=== PATIENT | male | born 1990 | race Caucasian/White ===

== ENCOUNTER 2019-12-12 16:53 | Inpatient (IN) | payer BC, OTHER ==
[2019-12-12] MEDS ORDERED: SODIUM CHLORIDE 0.9% 1,000 ML IV STA (17:20)
[2019-12-12] MEDS ORDERED: ONDANSETRON 4 MG/2 ML VIAL IVP STA (17:20)
[2019-12-12] MEDS ORDERED: MORPHINE SULFATE 4 MG/ML SYRINGE IV STA (17:20)
[2019-12-12 17:43] LABS: Basophils # (A) 0.1 k/uL (0-0.2); Basophils % (A) 1 %; Eosinophils # (A) 0.2 k/uL (0-0.7); Eosinophils % (A) 2 %; HCT 47.9 % (39.0-53.0); HGB 16.2 gm/dL (13.0-17.5); Lymphocytes # (A) 1.7 k/uL (1.0-4.8); Lymphocytes % (A) 19 %; MCH 34.3 pg (25.0-35.0); MCHC 33.8 g/dL (31.0-37.0); MCV 101.5 fL (80.0-100.0); Monocytes # (A) 0.7 k/uL (0-1.0); Monocytes % (A) 7 %; Neutrophils # (A) 6.4 k/uL (1.3-7.7); Neutrophils % (A) 69 %; Platelet Count 269 k/uL (150-450); RBC 4.72 m/uL (4.30-5.90); RDW 12.8 % (11.5-15.5); WBC 9.3 k/uL (3.8-10.6)
[2019-12-12 17:52] LABS: ALT 82 U/L (4-49); AST 138 U/L (17-59); African American GFR (CKD) >90 (>60 ml/min/1.73 sqM); Albumin 4.7 g/dL (3.5-5.0); Alcohol 39 mg/dL; Alkaline Phosphatase 102 U/L (38-126); Amylase 116 U/L (30-110); Anion Gap 13 mmol/L; Blood Urea Nitrogen 11 mg/dL (9-20); Calcium 9.5 mg/dL (8.4-10.2); Carbon Dioxide 24 mmol/L (22-30); Chloride 98 mmol/L (98-107); Glucose 107 mg/dL (74-99); Non-African American GFR(CKD) >90 (>60 ml/min/1.73 sqM); Potassium 4.2 mmol/L (3.5-5.1); Sodium 135 mmol/L (137-145); Total Bilirubin 0.8 mg/dL (0.2-1.3); Total Protein 7.7 g/dL (6.3-8.2)
[2019-12-12 17:57] LABS: Partial Thromboplastin Time 23.8 sec (22.0-30.0); Prothrombin Time 10.2 sec (9.0-12.0)
--- NOTE | 2019-12-12 18:07 | CT ---
EXAMINATION TYPE: CT abdomen pelvis w con DATE OF EXAM: 12/12/2019 COMPARISON: None. HISTORY: Epigastric pain x1 week, nausea and constipation. CT DLP: 652.4 mGycm, Automated Exposure Control for Dose Reduction was Utilized. CONTRAST: CT scan of the abdomen and pelvis is performed without oral but with IV Contrast, patient injected wi th 100ml mL of Isovue 300. FINDINGS: LUNG BASES: No significant abnormality is appreciated. LIVER/GB: Mild Hepatomegaly with marked fatty infiltration of liver. PANCREAS: Heterogeneous enlargement with mild/moderate ill-defined fluid and fat stranding in the henderson creatic head and uncinate process seen best near axial image 35. No well-formed fluid collection. No areas of nonenhancement noted. SPLEEN: No significant abnormality is seen. ADRENALS: No significant abnormality is seen. KIDNEYS: Symmetric cortical medullary uptake and excretion without hydronephrosis seen bilaterally. BOWEL: Suboptimal evaluation without enteric contrast. No suspicious small or large bowel dilatation is seen. PROSTATE/SEMINAL VESICLES: No gross abnormality seen. LYMPH NODES: No greater than 1cm abdominal or pelvic lymph nodes are appreciated. OSSEOUS STRUCTURES: Spine is straightened on sagittal images. OTHER: No significant additional abnormality is seen. IMPRESSION: CT findings consistent with a mild to moderate acute pancreatitis centered in the pancrea tic head. No areas of necrosis or well-formed fluid collection noted. Correlate clinically.
[2019-12-12 18:22] LABS: Appearance,Urine Clear (Clear); Bilirubin,Urine Negative (Negative); Blood,Urine Negative (Negative); Color,Urine Yellow; Glucose,Urine (UA) Negative (Negative); Ketones,Urine Negative (Negative); Leukocyte Esterase,Urine Negative (Negative); Nitrite,Urine Negative (Negative); PH, Urine 7.5 (5.0-8.0); Protein,Urine Negative (Negative); Specific Gravity,Urine 1.029 (1.001-1.035); Urobilinogen,Urine <2.0 mg/dL (<2.0)
--- NOTE | 2019-12-12 18:50 | ED ---
Abdominal Pain HPI <Blaine Youssef - Last Filed: 12/12/19 18:52> - General Source: patient, family Mode of arrival: ambulatory Limitations: no limitations <Dawn Milton - Last Filed: 12/12/19 20:05> - General Chief Complaint: Abdominal Pain Stated Complaint: abd pain - History of Present Illness Initial Comments: Patient is a 28-year-old male presenting to the emergency Department with complaints of increasing abdominal pain over the past week. Patient states the pain started out minimal but each day is getting worse and worse. He's also been having nausea and vomiting. He does admit to being a daily alcoholic, d rinking a pint of liquor daily. He states he did have a little bit today secondary to fear of withdrawal. He denies any abdominal surgeries. He denies any fever, chills, diarrhea. He also states he has not had a bowel movement in 3 days. He denies any urinary complaints such as dysuria or frequency. He states he takes an oiih-iwv-umffsxu supplement called kratom. He denies taking any other medications. He has no further complaints at this time. Upon arrival to the ER, patient is slightly hypertensive, rest of vitals are normal. Of note, patient states he does not want any narcotics. (Dawn Milton) - Related Data Home Medications Medication Instructions Recorded Confirmed No Known Home Medications 12/12/19 12/12/19 Allergies Allergy/AdvReac Type Severity Reaction Status Date / Time No Known Allergies Allergy Verified 12/12/19 19:05 Review of Systems ROS Other: All systems not noted in ROS Statement are negative. <Blaine Youssef - Last Filed: 12/12/19 18:52> ROS Other: All systems not noted in ROS Statement are negative. <Dawn Milton - Last Filed: 12/12/19 20:05> ROS Statement: Those systems with pertinent positive or pertinent negative responses have been documented in the HPI. Past Medical History Additional Past Medical History / Comment(s): drug abuse History of Any Multi-Drug Resistant Organisms: None Reported Past Surgical History: No Surgical Hx Reported Past Psychological History: No Psychological Hx Reported Smoking Status: Current every day smoker Past Alcohol Use History: Daily, Heavy Past Drug Use History: None Reported, Heroin <Dawn Milton - Last Filed: 12/12/19 20:05> General Exam Limitations: no limitations <Dawn Milton - Last Filed: 12/12/19 20:05> - General Exam Comments Initial Comments: GENERAL: Patient is nontoxic, diaphoretic, in mild distress. HEAD: Atraumatic, normocephalic. EYES: Pupils equal round and reactive to light, extraocular movements intact, sclera anicteric, conjunctiva are normal. Eyelids were unremarkable. ENT: TMs normal, nares patent, oropharynx clear without exudates. Moist mucous membranes. NECK: Normal range of motion, supple without lymphadenopathy or JVD. LUNGS: Unlabored respirations. Breath sounds clear to auscultation bilaterally and equal. No wheezes rales or rhonchi. HEART: Regular rate and rhythm without murmurs, rubs or gallops. ABDOMEN: Tender to palpation in the epigastric, right and left upper quadrant as well as some mid abdominal tenderness. Positive guarding. Soft, normoactive bowel sounds. No masses appreciated. : Deferred MUSCULOSKELETAL: Normal extremities with adequate strength and normal range of motion, no pitting or edema. No clubbing or cyanosis. NEUROLOGICAL: Patient is alert and oriented x 3. Motor and sensory are also intact. Cranial nerves II through XII grossly intact. Symmetrical smile. Normal speech, normal gait. PSYCH: Normal mood, normal affect. SKIN: Warm, Dry, normal turgor, no rashes or lesions noted. (Dawn Milton) Course <Blaine Youssef - Last Filed: 12/12/19 18:52> Vital Signs 12/12/19 12/12/19 12/12/19 16:55 17:33 18:12 Temperature 98 F Pulse Rate 98 88 88 Respiratory 18 18 18 Rate Blood Pressure 140/105 132/102 141/99 O2 Sat by Pulse 99 98 98 Oximetry 12/12/19 19:15 Temperature Pulse Rate 91 Respiratory 18 Rate Blood Pressure 131/98 O2 Sat by Pulse 97 Oximetry - Reevaluation(s) Reevaluation #1: 12/12/19 18:52 PA supervision: I proceeded [id number] evaluation patient patient did present with classic abdominal pain he was found have elevation of his pancreatic enzymes. Patient will be admitted for inpatient treatment of acute pancreatitis. I do agree with the assessment and plan. [facility]. (Blaine Youssef) Medical Decision Making - Lab Data Result diagrams: 12/12/19 17:31 12/12/19 17:31 <Blaine Youssef - Last Filed: 12/12/19 18:52> - Lab Data Result diagrams: 12/12/19 17:31 12/12/19 17:31 <Dawn Milton - Last Filed: 12/12/19 20:05> - Medical Decision Making Patient is a 28-year-old male, history of alcohol abuse, presenting with epigastric pain, nausea and vomiting for one week. Patient arrived in mild distress, slightly diaphoretic. Patient is simply tender on exam, mild distention. There is a normal white count at 9.3, lipase is elevated at 1164, liver enzymes are also slightly elevated, lactic acid is 1.9. Urine is unremarkable, serum alcohol is 39. Patient was given fluids, Zofran. I did order some morphine however patient is declining all narcotics. I will give patient Toradol patient will be admitted for acute pancreatitis. He is agreement with this plan of care. Patient was thought to be admitted under [facility], however Dr. Sierra stated they are covering for Dr. Callaway and will accept the patient. She'll be continued on fluids, pain control. Again, he is declining all narcotics. CIWA protocol is ordered and patient is okay with ativan if needed. Case discussed with Dr. Youssef. (Dawn Milton) - Lab Data Lab Results 12/12/19 12/12/19 12/12/19 Range/Units 17:31 17:31 17:31 WBC 9.3 (3.8-10.6) k/uL RBC 4.72 (4.30-5.90) m/uL Hgb 16.2 (13.0-17.5) gm/dL Hct 47.9 (39.0-53.0) % MCV 101.5 H (80.0-100.0) fL MCH 34.3 (25.0-35.0) pg MCHC 33.8 (31.0-37.0) g/dL RDW 12.8 (11.5-15.5) % Plt Count 269 (150-450) k/uL Neutrophils % 69 % Lymphocytes % 19 % Monocytes % 7 % Eosinophils % 2 % Basophils % 1 % Neutrophils # 6.4 (1.3-7.7) k/uL Lymphocytes # 1.7 (1.0-4.8) k/uL Monocytes # 0.7 (0-1.0) k/uL Eosinophils # 0.2 (0-0.7) k/uL Basophils # 0.1 (0-0.2) k/uL PT 10.2 (9.0-12.0) sec INR 1.0 (<1.2) APTT 23.8 (22.0-30.0) sec Sodium 135 L (137-145) mmol/L Potassium 4.2 (3.5-5.1) mmol/L Chloride 98 (98-107) mmol/L Carbon Dioxide 24 (22-30) mmol/L Anion Gap 13 mmol/L BUN 11 (9-20) mg/dL Creatinine 0.80 (0.66-1.25) mg/dL Est GFR (CKD-EPI)AfAm >90 (>60 ml/min/1.73 sqM) Est GFR (CKD-EPI)NonAf >90 (>60 ml/min/1.73 sqM) Glucose 107 H (74-99) mg/dL Plasma Lactic Acid Heron (0.7-2.0) mmol/L Calcium 9.5 (8.4-10.2) mg/dL Total Bilirubin 0.8 (0.2-1.3) mg/dL AST 138 H (17-59) U/L ALT 82 H (4-49) U/L Alkaline Phosphatase 102 (38-126) U/L Total Protein 7.7 (6.3-8.2) g/dL Albumin 4.7 (3.5-5.0) g/dL Amylase 116 H (30-110) U/L Lipase 1164 H (23-300) U/L Urine Color Urine Appearance (Clear) Urine pH (5.0-8.0) Ur Specific [place] (1.001-1.035) Urine Protein (Negative) Urine Glucose (UA) (Negative) Urine Ketones (Negative) Urine Blood (Negative) Urine Nitrite (Negative) Urine Bilirubin (Negative) Urine Urobilinogen (<2.0) mg/dL Ur Leukocyte Esterase (Negative) Serum Alcohol 39 mg/dL 12/12/19 12/12/19 Range/Units 17:31 18:08 WBC (3.8-10.6) k/uL RBC (4.30-5.90) m/uL Hgb (13.0-17.5) gm/dL Hct (39.0-53.0) % MCV (80.0-100.0) fL MCH (25.0-35.0) pg MCHC (31.0-37.0) g/dL RDW (11.5-15.5) % Plt Count (150-450) k/uL Neutrophils % % Lymphocytes % % Monocytes % % Eosinophils % % Basophils % % Neutrophils # (1.3-7.7) k/uL Lymphocytes # (1.0-4.8) k/uL Monocytes # (0-1.0) k/uL Eosinophils # (0-0.7) k/uL Basophils # (0-0.2) k/uL PT (9.0-12.0) sec INR (<1.2) APTT (22.0-30.0) sec Sodium (137-145) mmol/L Potassium (3.5-5.1) mmol/L Chloride (98-107) mmol/L Carbon Dioxide (22-30) mmol/L Anion Gap mmol/L BUN (9-20) mg/dL Creatinine (0.66-1.25) mg/dL Est GFR (CKD-EPI)AfAm (>60 ml/min/1.73 sqM) Est GFR (CKD-EPI)NonAf (>60 ml/min/1.73 sqM) Glucose (74-99) mg/dL Plasma Lactic Acid Heron 1.9 (0.7-2.0) mmol/L Calcium (8.4-10.2) mg/dL Total Bilirubin (0.2-1.3) mg/dL AST (17-59) U/L ALT (4-49) U/L Alkaline Phosphatase (38-126) U/L Total Protein (6.3-8.2) g/dL Albumin (3.5-5.0) g/dL Amylase (30-110) U/L Lipase (23-300) U/L Urine Color Yellow Urine Appearance Clear (Clear) Urine pH 7.5 (5.0-8.0) Ur Specific [place] 1.029 (1.001-1.035) Urine Protein Negative (Negative) Urine Glucose (UA) Negative (Negative) Urine Ketones Negative (Negative) Urine Blood Negative (Negative) Urine Nitrite Negative (Negative) Urine Bilirubin Negative (Negative) Urine Urobilinogen <2.0 (<2.0) mg/dL Ur Leukocyte Esterase Negative (Negative) Serum Alcohol mg/dL Disposition <Blaine Youssef - Last Filed: 12/12/19 18:52> Decision Date: 12/12/19 Decision Time: 19:28 <Dawn Milton - Last Filed: 12/12/19 20:05> Clinical Impression: Pancreatitis, Alcohol abuse, Nausea & vomiting Disposition: ADMITTED IP TO THIS HOSP Condition: Stable
[2019-12-12] MEDS ORDERED: KETOROLAC 15 MG/ML 1 ML VIAL IVP STA (19:04)
[2019-12-12] MEDS ORDERED: NALOXONE 0.4 MG/ML 1 ML VIAL IV PRN (19:25)
[2019-12-12] MEDS ORDERED: Acetaminophen-Codeine 300-30mg TAB PO PRN (19:25)
[2019-12-12] MEDS ORDERED: ACETAMINOPHEN TAB 325 MG TAB PO PRN (19:25)
[2019-12-12] MEDS ORDERED: KETOROLAC 15 MG/ML 1 ML VIAL IVP PRN (19:25)
[2019-12-12] MEDS ORDERED: THIAMINE 100 MG/ML 2 ML VIAL IM STA (19:27)
[2019-12-12] MEDS ORDERED: LORazepam 2 MG/ML INJ IV PRN ×2 (19:27)
[2019-12-12] MEDS: SODIUM CHLORIDE 0.9% 1,000 ML IV SCH (21:53)
[2019-12-13] MEDS: LORazepam 2 MG/ML INJ IV PRN ×3 (05:53→15:55)
[2019-12-13] MEDS: THIAMINE 100 MG TAB PO SCH ×2 (07:12→16:54)
[2019-12-13] MEDS: SODIUM CHLORIDE 0.9% 1,000 ML IV SCH ×2 (07:12→19:10)
[2019-12-13 08:02] LABS: Basophils % (A) 1 %; Eosinophils # (A) 0.2 k/uL (0-0.7); Eosinophils % (A) 3 %; HCT 40.6 % (39.0-53.0); HGB 13.5 gm/dL (13.0-17.5); Lymphocytes # (A) 1.2 k/uL (1.0-4.8); Lymphocytes % (A) 23 %; MCH 34.8 pg (25.0-35.0); MCHC 33.2 g/dL (31.0-37.0); MCV 104.9 fL (80.0-100.0); Macrocytosis Slight; Mean Platelet Volume 7.2; Monocytes # (A) 0.5 k/uL (0-1.0); Monocytes % (A) 9 %; Neutrophils # (A) 3.3 k/uL (1.3-7.7); Neutrophils % (A) 62 %; Platelet Count 195 k/uL (150-450); RBC 3.87 m/uL (4.30-5.90); RDW 12.9 % (11.5-15.5); WBC 5.3 k/uL (3.8-10.6)
[2019-12-13 08:18] LABS: African American GFR (CKD) >90 (>60 ml/min/1.73 sqM); Anion Gap 6 mmol/L; Blood Urea Nitrogen 9 mg/dL (9-20); Calcium 8.5 mg/dL (8.4-10.2); Carbon Dioxide 28 mmol/L (22-30); Chloride 106 mmol/L (98-107); Glucose 89 mg/dL (74-99); Non-African American GFR(CKD) >90 (>60 ml/min/1.73 sqM); Potassium 4.4 mmol/L (3.5-5.1); Sodium 140 mmol/L (137-145)
[2019-12-13 11:16] LABS: Amylase 74 U/L (30-110)
--- NOTE | 2019-12-13 11:40 | P.HPIM ---
History of Present Illness 28-year-old male presenting to the emergency Department with complaints of increasing abdominal pain over the past week. Patient states the pain started out minimal but each day is getting worse and worse. He's also been having na usea and vomiting. He does admit to being a daily alcoholic, drinking a pint of liquor daily. He states he did have a little bit today secondary to fear of withdrawal. He denies any abdominal surgeries. He denies any fever, chills, diarrhea. He also states he has not had a bowel movement in 3 days. He denies any urinary complaints such as dysuria or frequency. He states he takes an goaw-lbs-hbzeurx supplement called kratom. He denies taking any other medications. Patient pain is prominently in the right upper quadrant and sharp in nature 8/10 in severity yesterday and now around 3/10 in severity. Patient is hungry and wanted to eat patient is presently on clear liquid diet will adv ance to full liquid by and of the day patient is found to have elevated left days of febrile thousand and CT of the abdomen did show edematous pancreatitis. Review of Systems REVIEW OF SYSTEMS: CONSTITUTIONAL: No fever, no malaise, no fatigue. HEENT: No recent visual problems or hearing problems. Denied any sore throat. CARDIOVASCULAR: No chest pain, orthopnea, PND, no palpitations, no syncope. PULMONARY: No shortness of breath, no cough, no hemoptysis. GASTROINTESTINAL: As mentioned in HPI NEUROLOGICAL: No headaches, no weakness, no numbness. HEMATOLOGICAL: Denies any bleeding or petechiae. GENITOURINARY: Denies any burning micturition, frequency, or urgency. MUSCULOSKELETAL/RHEUMATOLOGICAL: Denies any joint pain, swelling, or any muscle pain. ENDOCRINE: Denies any polyuria or polydipsia. The rest of the 14-point review of systems is negative. Past Medical History Past Medical History: No Reported History Additional Past Medical History / Comment(s): drug abuse History of Any Multi-Drug Resistant Organisms: None Reported Past Surgical History: No Surgical Hx Reported Past Anesthesia/Blood Transfusion Reactions: No Reported Reaction Additional Past Anesthesia/Blood Transfusion Reaction / Comment(s): Patient has never received blood Past Psychological History: No Psychological Hx Reported Smoking Status: Current every day smoker Past Alcohol Use History: Daily, Heavy Additional Past Alcohol Use History / Comment(s): Patient states he drinks over a fifth of vodka. Past Drug Use History: None Reported, Heroin - Past Family History Father History Unknown: Yes Medications and Allergies Home Medications Medication Instructions Recorded Confirmed Type No Known Home Medications 12/12/19 12/12/19 History Allergies Allergy/AdvReac Type Severity Reaction Status Date / Time No Known Allergies Allergy Verified 12/12/19 19:05 Physical Exam Vitals: Vital Signs Temp Pulse Pulse Resp BP BP Pulse Ox 12/13/19 07:10 18 12/13/19 07:00 97.9 F 73 18 120/79 98 12/13/19 04:20 20 12/13/19 00:50 97 F L 87 20 146/82 97 12/13/19 00:20 91 18 12/12/19 20:45 98 F 91 18 139/91 97 12/12/19 20:19 98.0 F 94 18 138/97 97 12/12/19 19:15 91 18 131/98 97 12/12/19 18:12 88 18 141/99 98 12/12/19 17:33 88 18 132/102 98 12/12/19 16:55 98 F 98 18 140/105 99 Intake and Output 12/12/19 12/13/19 12/13/19 22:59 06:59 14:59 Other: Voiding Method Toilet Toilet # Voids 2 1 Weight 63.503 kg PHYSICAL EXAMINATION: GENERAL: The patient is alert and oriented x3, not in any acute distress. Well developed, well nourished. HEENT: Pupils are round and equally reacting to light. EOMI. No scleral icterus. No conjunctival pallor. Normocephalic, atraumatic. No pharyngeal erythema. No thyromegaly. CARDIOVASCULAR: S1 and S2 present. No murmurs, rubs, or gallops. PULMONARY: Chest is clear to auscultation, no wheezing or crackles. ABDOMEN: Soft, mild right right upper quadrant tenderness, nondistended, normoactive bowel sounds. No palpable organomegaly. MUSCULOSKELETAL: No joint swelling or deformity. EXTREMITIES: No cyanosis, clubbing, or pedal edema. NEUROLOGICAL: Gross neurological examination did not reveal any focal deficits. SKIN: No rashes. Results CBC & Chem 7: 12/13/19 07:22 12/13/19 07:22 Labs: Abnormal Lab Results - Last 24 Hours (Table) 12/12/19 12/12/19 12/13/19 Range/Units 17:31 17:31 07:22 RBC 3.87 L (4.30-5.90) m/uL MCV 101.5 H 104.9 H (80.0-100.0) fL Sodium 135 L (137-145) mmol/L Glucose 107 H (74-99) mg/dL AST 138 H (17-59) U/L ALT 82 H (4-49) U/L Amylase 116 H (30-110) U/L Lipase 1164 H (23-300) U/L 12/13/19 Range/Units 07:22 RBC (4.30-5.90) m/uL MCV (80.0-100.0) fL Sodium (137-145) mmol/L Glucose (74-99) mg/dL AST (17-59) U/L ALT (4-49) U/L Amylase (30-110) U/L Lipase 794 H (23-300) U/L Thrombosis Risk Factor Assmnt - Choose All That Apply Any of the Below Risk Factors Present?: No Other Risk Factors: No Other congenital or acquired thrombophilia - If yes, enter type in comment: No Thrombosis Risk Factor Assessment Level: Very Low Risk Assessment and Plan Plan: -Pancreatic that is most probably alcoholic, although cannot completely rule out gallstone pancreatic discussed changes location of pain ultrasound of the abdomen was be obtained and patient will be continued on clear liquid diet and advance as tolerated any with IV fluids -Alcohol abuse drinks about one fifth of liquor every day patient is having all call withdraws at this time continue with Ativan ROBYNND protocol -Acute alcoholic hepatitis -Dehydration and hypovolemic hyponatremia continue with IV fluids -DVT prophylaxis early ambulation, GI prophylaxis Protonix
--- NOTE | 2019-12-13 14:57 | US ---
EXAMINATION TYPE: US gallbladder DATE OF EXAM: 12/13/2019 COMPARISON: CT 12/12/2019 CLINICAL HISTORY: elevated liver enzymes. pancreatitis. difficult and limited exam due to overlying b owel gas EXAM MEASUREMENTS: Liver Length: 20.0 cm Gallbladder Wall: 0.1 cm CBD: 0.5 cm Right Kidney: 10.8 x 4.4 x 5.4 cm Pancreas: Obscured by bowel gas Liver: Attenuating, enlarged, heterogeneous Gallbladder: Slightly hydropic Evidence for sonographic Lind's sign: No CBD: wnl as visualized Right Kidney: No hydronephrosis or masses seen IMPRESSION: Hepatomegaly with underlying fatty hepatic infiltration.
[2019-12-13 21:15] VITALS: RESP 18
[2019-12-14] MEDS: LORazepam 2 MG/ML INJ IV PRN ×2 (02:23→06:58)
[2019-12-14] MEDS: THIAMINE 100 MG TAB PO SCH (06:55)
[2019-12-14 08:05] VITALS: BP 139/96; PULSE 74; TEMP 97.6
[2019-12-14 09:34] LABS: ALT 62 U/L (4-49); AST 113 U/L (17-59); African American GFR (CKD) >90 (>60 ml/min/1.73 sqM); Albumin 3.4 g/dL (3.5-5.0); Alkaline Phosphatase 90 U/L (38-126); Anion Gap 4 mmol/L; Blood Urea Nitrogen 4 mg/dL (9-20); Calcium 8.7 mg/dL (8.4-10.2); Carbon Dioxide 25 mmol/L (22-30); Chloride 109 mmol/L (98-107); Glucose 96 mg/dL (74-99); Non-African American GFR(CKD) >90 (>60 ml/min/1.73 sqM); Potassium 3.9 mmol/L (3.5-5.1); Sodium 138 mmol/L (137-145); Total Protein 5.9 g/dL (6.3-8.2)
--- NOTE | 2019-12-14 19:17 | P.DS ---
Providers Date of admission: 12/12/19 18:50 Expected date of discharge: 12/14/19 Attending physician: Sarath Sierra MD Primary care physician: Eduar Nolen Hospital Course: Final diagnosis -Pancreatitis that is most probably alcoholic, although cannot completely rule out gallstone pancreatitis -Alcohol abuse -Acute alcoholic hepatitis -Dehydration and hypovolemic hyponatremia, improved -DVT prophylaxis Discharge disposition Patient is being discharged in a stable condition with guarded prognosis to home. Patient will follow-up with Dr. Nolen upon discharge. Patient instructed to avoid alcohol intake. Patient was given a prescription for Librium taper and instructed not to drink while taking. Total time taken is 35 minutes. History of present illness This is a 28-year-old male who was recently admitted with abdominal pain along with nausea and vomiting and was being closely monitored. Patient was also found to have acute pancreatitis most likely related to alcohol. Patient was maintained on CIWA protocol and abdominal pain improved. Patient diet was advanced to full liquids and tolerated well. Patient instructed to continue with full liquids over the next few days and advance slowly as tolerated. Patient also provided a prescription for Librium taper of 25 mg TID for 3 days, then 25mg BID for 3 days, then 25mg daily for 3 days and instructed to avoid alcohol. Patient will need to follow up with primary care provider upon discharge. Patient states he drinks about a pint of liquor daily with no real intentions to quit at this time. Patient instructed to refrain from alcohol intake and e ncouraged rehab for alcohol. Currently no reports of chest pain, palpitations, or shortness. Patient is afebrile. No reports of nausea or vomiting and patient is tolerating diet. On exam vital signs are stable. Temp is 97.6F, pulse is 74, respirations are 18, blood pressure 85185/96, oxygen saturation is 979% on room air. Cardio S1, S2 are present. Respiratory shows clear to auscultation. Abdomen is soft and nontender. Nervous system shows no focal deficits. Please refer to medication reconciliation sheet for a list of medications. Patient Condition at Discharge: Stable Plan - Discharge Summary Discharge Rx Participant: No New Discharge Prescriptions: New chlordiazePOXIDE HCl [Librium] 25 mg PO TID 9 Days #18 capsule Thiamine [Vitamin B-1] 100 mg PO BID-W/MEALS 30 Days #60 tab Discharge Medication List Thiamine [Vitamin B-1] 100 mg PO BID-W/MEALS 30 Days #60 tab 12/14/19 [Rx] chlordiazePOXIDE HCl [Librium] 25 mg PO TID 9 Days #18 capsule 12/14/19 [Rx] Follow up Appointment(s)/Referral(s): Eduar Nolen MD [Primary Care Provider] - 1-2 days Patient Instructions/Handouts: Alcohol Withdrawal (DC) Activity/Diet/Wound Care/Special Instructions: *Please call [facility] at discharge if indigent funds are needed for new medications [id number] Activity Limited until follow-up Continue current diet Follow-up with primary care provider upon discharge Avoid all alcohol intake Continue with Librium and taper down and do not drink while taking* Discharge Disposition: HOME SELF-CARE
== END 2019-12-14 16:17 | disposition home or self-care (01) | DRG 439 ==
LOC: EC 16:53 → 4SSUR 18:50
PROVIDERS: ADMIT Internal Medicine; ATTEND Internal Medicine
DX: K85.20 Alcohol induced acute pancreatitis without necrosis or infection (principal); F10.230 Alcohol dependence with withdrawal, uncomplicated; E87.1 Hypo-osmolality and hyponatremia; K70.10 Alcoholic hepatitis without ascites; F17.200 Nicotine dependence, unspecified, uncomplicated; R03.0 Elevated blood-pressure reading, without diagnosis of hypertension; E86.1 Hypovolemia; E86.0 Dehydration; K85.10 Biliary acute pancreatitis without necrosis or infection; K80.20 Calculus of gallbladder without cholecystitis without obstruction; Y90.1 Blood alcohol level of 20-39 mg/100 ml
CPT/HCPCS: 36415; 74177; 76705; 80048; 80053; 80320; 81003; 82150; 83605; 83690; 85025; 85610; 85730; 96361; 96374; 96375; 99285

== ENCOUNTER 2020-06-29 05:23 | Inpatient (IN) | payer OTHER ==
[2020-06-29] MEDS ORDERED: SODIUM CHLORIDE 0.9% 1,000 ML IV ONE ×2 (06:03→07:35)
[2020-06-29] MEDS ORDERED: THIAMINE 100 MG/ML 2 ML VIAL IM STA (06:03)
[2020-06-29 06:07] LABS: Basophils % (A) 0 %; Eosinophils # (A) 0.1 k/uL (0-0.7); Eosinophils % (A) 1 %; HCT 45.5 % (39.0-53.0); HGB 16.7 gm/dL (13.0-17.5); Lymphocytes # (A) 1.5 k/uL (1.0-4.8); Lymphocytes % (A) 11 %; MCH 34.4 pg (25.0-35.0); MCHC 36.6 g/dL (31.0-37.0); MCV 93.8 fL (80.0-100.0); Mean Platelet Volume 7.2; Monocytes # (A) 0.9 k/uL (0-1.0); Monocytes % (A) 6 %; Neutrophils # (A) 11.6 k/uL (1.3-7.7); Neutrophils % (A) 82 %; Platelet Count 233 k/uL (150-450); RBC 4.85 m/uL (4.30-5.90); RDW 12.8 % (11.5-15.5); WBC 14.3 k/uL (3.8-10.6)
[2020-06-29] MEDS: LORazepam 2 MG/ML INJ IV PRN ×7 (06:10→20:50)
[2020-06-29 06:19] LABS: ALT 29 U/L (4-49); AST 80 U/L (17-59); African American GFR (CKD) >90 (>60 ml/min/1.73 sqM); Albumin 4.4 g/dL (3.5-5.0); Alcohol <10 mg/dL; Alkaline Phosphatase 76 U/L (38-126); Anion Gap 13 mmol/L; Blood Urea Nitrogen 11 mg/dL (9-20); Calcium 9.5 mg/dL (8.4-10.2); Carbon Dioxide 24 mmol/L (22-30); Chloride 98 mmol/L (98-107); Glucose 177 mg/dL (74-99); Non-African American GFR(CKD) >90 (>60 ml/min/1.73 sqM); Potassium 3.7 mmol/L (3.5-5.1); Sodium 135 mmol/L (137-145); Total Bilirubin 1.1 mg/dL (0.2-1.3); Total Protein 6.8 g/dL (6.3-8.2)
[2020-06-29 06:38] LABS: Amylase 407 U/L (30-110)
--- NOTE | 2020-06-29 06:38 | ED ---
Alcohol HPI - General Chief Complaint: Alcohol Stated Complaint: Alcohol Withdrawal Time Seen by Provider: 06/29/20 06:03 Source: patient, RN notes reviewed, old records reviewed Mode of arrival: ambulatory Limitations: no limitations - History of Present Illness Initial Comments: This Patient is a 29-year-old male who presents emergency Department today with complaints of alcohol withdrawal and abdominal pain. Patient believes that he suffering from acute exacerbation of pancreatitis. Patient reports that he drinks approximately 1/5 a day for the past year. He last drink yesterday around noon. Patient reports that he has never had seizures for withdrawal. He states that he has attempted to go to rehab and stop drinking in the past but is never had significant withdrawal symptoms such as this time today. Patient arrived to emergency department with tremors. He doesn't complain of episodes of vomiting. Denies hemoptysis. - Related Data Home Medications Medication Instructions Recorded Confirmed No Known Home Medications 06/29/20 06/29/20 Allergies Allergy/AdvReac Type Severity Reaction Status Date / Time No Known Allergies Allergy Verified 06/29/20 07:22 Review of Systems ROS Statement: Those systems with pertinent positive or pertinent negative responses have been documented in the HPI. ROS Other: All systems not noted in ROS Statement are negative. Past Medical History Past Medical History: No Reported History Additional Past Medical History / Comment(s): drug abuse History of Any Multi-Drug Resistant Organisms: None Reported Past Surgical History: No Surgical Hx Reported Past Anesthesia/Blood Transfusion Reactions: No Reported Reaction Additional Past Anesthesia/Blood Transfusion Reaction / Comment(s): Patient has never received blood Past Psychological History: No Psychological Hx Reported Smoking Status: Current every day smoker Past Alcohol Use History: Daily, Heavy Past Drug Use History: Heroin - Past Family History Father History Unknown: Yes General Exam - General Exam Comments Initial Comments: 29-year-old male. Patient is tremulous. Actually going through withdrawal. Limitations: no limitations General appearance: alert, in no apparent distress Head exam: Present: atraumatic, normocephalic, normal inspection Eye exam: Present: normal appearance, PERRL, EOMI. Absent: scleral icterus, conjunctival injection, periorbital swelling ENT exam: Present: normal exam, mucous membranes moist Neck exam: Present: normal inspection. Absent: tenderness, meningismus, lymphadenopathy Respiratory exam: Present: normal lung sounds bilaterally. Absent: respiratory distress, wheezes, rales, rhonchi, stridor Cardiovascular Exam: Present: regular rate, normal rhythm, normal heart sounds. Absent: systolic murmur, diastolic murmur, rubs, gallop, clicks GI/Abdominal exam: Present: soft, tenderness (epigastric ), normal bowel sounds. Absent: distended, guarding, rebound, rigid Extremities exam: Present: normal inspection, full ROM, normal capillary refill. Absent: tenderness, pedal edema, joint swelling, calf tenderness Back exam: Present: normal inspection Neurological exam: Present: alert, oriented X3, CN II-XII intact Psychiatric exam: Present: normal affect, normal mood Skin exam: Present: warm, dry, intact, normal color. Absent: rash Course Vital Signs 06/29/20 05:36 Temperature 96.8 F L Pulse Rate 73 Respiratory 20 Rate Blood Pressure 149/114 O2 Sat by Pulse 100 Oximetry - Reevaluation(s) Reevaluation #1: 06/29/20 06:37 Seizure precautions placed Medical Decision Making - Medical Decision Making 20-year-old male presents the ER today for evaluation for alcohol withdrawal and pancreatitis. Patient has an elevated lipase of 5900. Patient was started on CIWA protocol. Was given morphine for abdominal pain. Patient is given 2 L bolus started on banana bag. Patient will be admitted at this time after discussion with Dr. Nolasco. Requests CT abdomen and pelvis. - Lab Data Result diagrams: 06/29/20 05:52 06/29/20 05:52 Lab Results 06/29/20 06/29/20 06/29/20 Range/Units 05:52 05:52 05:52 WBC 14.3 H (3.8-10.6) k/uL RBC 4.85 (4.30-5.90) m/uL Hgb 16.7 (13.0-17.5) gm/dL Hct 45.5 (39.0-53.0) % MCV 93.8 (80.0-100.0) fL MCH 34.4 (25.0-35.0) pg MCHC 36.6 (31.0-37.0) g/dL RDW 12.8 (11.5-15.5) % Plt Count 233 (150-450) k/uL MPV 7.2 Neutrophils % 82 % Lymphocytes % 11 % Monocytes % 6 % Eosinophils % 1 % Basophils % 0 % Neutrophils # 11.6 H (1.3-7.7) k/uL Lymphocytes # 1.5 (1.0-4.8) k/uL Monocytes # 0.9 (0-1.0) k/uL Eosinophils # 0.1 (0-0.7) k/uL Basophils # 0.0 (0-0.2) k/uL Sodium 135 L (137-145) mmol/L Potassium 3.7 (3.5-5.1) mmol/L Chloride 98 (98-107) mmol/L Carbon Dioxide 24 (22-30) mmol/L Anion Gap 13 mmol/L BUN 11 (9-20) mg/dL Creatinine 0.78 (0.66-1.25) mg/dL Est GFR (CKD-EPI)AfAm >90 (>60 ml/min/1.73 sqM) Est GFR (CKD-EPI)NonAf >90 (>60 ml/min/1.73 sqM) Glucose 177 H (74-99) mg/dL Calcium 9.5 (8.4-10.2) mg/dL Magnesium 1.5 L (1.6-2.3) mg/dL Total Bilirubin 1.1 (0.2-1.3) mg/dL AST 80 H (17-59) U/L ALT 29 (4-49) U/L Alkaline Phosphatase 76 (38-126) U/L Total Protein 6.8 (6.3-8.2) g/dL Albumin 4.4 (3.5-5.0) g/dL Amylase 407 H* (30-110) U/L Lipase 5951 H (23-300) U/L Serum Alcohol <10 mg/dL Disposition Clinical Impression: Pancreatitis, Alcohol abuse Disposition: ADMITTED IP TO THIS HOSP Condition: Stable Is patient prescribed a controlled substance at d/c from ED?: No Referrals: Eduar Nolen MD [Primary Care Provider] - 1-2 days Time of Disposition: 07:39
[2020-06-29 07:08] LABS: Lipase 5951 U/L (23-300)
[2020-06-29] MEDS ORDERED: MORPHINE SULFATE 4 MG/ML SYRINGE IVP STA (07:21)
[2020-06-29] MEDS ORDERED: SODIUM CHLORIDE 0.9% 1,000 ML with MVI, ADULT NO.4 WITH VIT K 10 ML, THIAMINE 100 MG, F... IV ONE ×4 (07:35)
[2020-06-29] MEDS ORDERED: DEXTROSE 5%-0.45% NACL 2,000 ML IV ONE (07:36)
[2020-06-29] MEDS ORDERED: HYDROmorphone 0.5 MG/0.5 ML SYRINGE IVP PRN (07:39)
[2020-06-29] MEDS ORDERED: NALOXONE 0.4 MG/ML 1 ML VIAL IV PRN (07:39)
--- NOTE | 2020-06-29 08:16 | CT ---
EXAMINATION TYPE: CT abdomen pelvis w con DATE OF EXAM: 06/29/2020 COMPARISON: 12/12/2019 HISTORY: Abdominal pain CT DLP: 642.9 mGycm CONTRAST: CT scan of the abdomen and pelvis is performed with Oral Contrast and with IV Contrast, patient injec pasha with 100 mL of Isovue 300. FINDINGS: LUNG BASES-: No visible nodule. No infiltrate. LIVER/GB: No calcified gallstones. There is evidence of hepatomegaly. No space occupying hepatic l esion. Biliary tree is of normal caliber. PANCREAS: There is diffuse edema and inflammation of the pancreas compatible with the provided histor y of acute pancreatitis. Surrounding fluid is noted without pseudocyst formation at this time. There is no evidence for pancreatic necrosis or abscess formation. SPLEEN: No splenic enlargement. No lesion seen. ADRENALS: No nodule. No thickening. KIDNEYS/BLADDER: No hydronephrosis. No nephrolithiasis. No distinct renal mass. Urinary bladder g rossly unremarkable. BOWEL: Normal appendix. Normal bowel caliber. No inflammation. GENITAL ORGANS: No gross abnormality. LYMPH NODES: No greater than 1cm abdominal or pelvic lymph nodes are appreciated. AORTA: No significant abnormality. OSSEOUS STRUCTURES: No significant abnormality is seen. OTHER: No significant additional abnormality is seen. IMPRESSION: 1. Findings are compatible with acute pancreatitis. 2. Hepatomegaly.
[2020-06-29] MEDS: MAGNESIUM SULFATE-D5W PMX 1 GM in DEXTROSE/WATER 1 100ML.BAG IVPB SCH ×2 (08:18→09:12)
[2020-06-29] MEDS: PANTOPRAZOLE 40 MG/10 ML VIAL IVP SCH (08:23)
[2020-06-29] MEDS ORDERED: PANTOPRAZOLE 40 MG/10 ML VIAL IV SCH (09:00)
--- NOTE | 2020-06-29 09:13 | P.HPIM ---
History of Present Illness H&P Date: 06/29/20 Chief Complaint: Abdominal pain This is a 29-year-old male with past medical history significant for heavy alcohol abuse who presented to the emergency room with severe abdominal pain. Patient said that he drinks a fifth of ''cheap vodka'' on a daily basis. Patient reported last drink was yesterday around noon. Last night, patient was not feeling well. He was having severe abdominal pain mostly in the epigastric area. He said that he was concerned about having symptoms of withdrawal and decided to come into the emergency room. In the ER, patient was found to have evidence of severe pancreatitis. 2 to the hospital for further management. Review of Systems Review of system: 14 points review of systems were obtained and were negative except to what were mentioned in the HPI. Past Medical History Past Medical History: No Reported History Additional Past Medical History / Comment(s): drug abuse History of Any Multi-Drug Resistant Organisms: None Reported Past Surgical History: No Surgical Hx Reported Past Anesthesia/Blood Transfusion Reactions: No Reported Reaction Additional Past Anesthesia/Blood Transfusion Reaction / Comment(s): Patient has never received blood Past Psychological History: No Psychological Hx Reported Smoking Status: Current every day smoker Past Alcohol Use History: Daily, Heavy Past Drug Use History: Heroin - Past Family History Father History Unknown: Yes Medications and Allergies Home Medications Medication Instructions Recorded Confirmed Type No Known Home Medications 06/29/20 06/29/20 History Allergies Allergy/AdvReac Type Severity Reaction Status Date / Time No Known Allergies Allergy Verified 06/29/20 07:22 Physical Exam Vitals: Vital Signs Temp Pulse Pulse Resp BP BP Pulse Ox 06/29/20 08:57 98.0 F 99 16 149/89 100 06/29/20 08:35 97.6 F 74 16 130/109 99 06/29/20 05:36 96.8 F L 73 20 149/114 100 Intake and Output 06/28/20 06/29/20 06/29/20 22:59 06:59 14:59 Other: Weight 63.503 kg General: The patient is awake and alert, in no distress Eye: there is normal conjunctiva bilaterally. Neck: The neck is supple, there is no JVD. Cardiovascular: Normal S1-S2, no S3-S4, no murmurs. Respiratory: Lungs clear to auscultation bilaterally Gastrointestinal: Abdomen is soft, there is moderate to severe tenderness to palpation worse in the epigastric area Musculoskeletal: There is no pedal edema. Neurological:. Speech is normal. Skin: Skin is warm and dry Results CBC & Chem 7: 06/29/20 05:52 06/29/20 05:52 Labs: Abnormal Lab Results - Last 24 Hours (Table) 06/29/20 06/29/20 06/29/20 Range/Units 05:52 05:52 05:52 WBC 14.3 H (3.8-10.6) k/uL Neutrophils # 11.6 H (1.3-7.7) k/uL Sodium 135 L (137-145) mmol/L Glucose 177 H (74-99) mg/dL Magnesium 1.5 L (1.6-2.3) mg/dL AST 80 H (17-59) U/L Amylase 407 H* (30-110) U/L Lipase 5951 H (23-300) U/L Assessment and Plan Assessment: This is a 29-year-old male with past medical history noted below who presented to the emergency room with severe abdominal pain. Patient was evaluated in the ER and admitted to the hospital for further management of his medical problems noted below. 1. Acute pancreatitis: Alcohol-induced. Computed tomography scan of the abdomen and pelvis showed severe pancreatitis with no evidence of abscess or necrosis. Patient would be made nothing by mouth. Continue aggressive IV fluid hydration with D5/half-normal saline at 150 mL per hour. 2. Hypomagnesemia, replaced in the ER. 3. Alcohol abuse: Counseled extensively to quit. Ativan per [facility] protocol as needed. Vitamin replacement. 4. DVT prophylaxis with subcu Lovenox Today, I reviewed his medication list and lab work results. Continue current regimen. IV Protonix 40 mg daily. Repeat lab work in the morning. Consult social work to provide resources for patient to help with alcohol cessation.
[2020-06-29] MEDS: ENOXAPARIN 40 MG/0.4 ML SYRINGE SQ SCH (09:20)
[2020-06-29] MEDS: ONDANSETRON 4 MG/2 ML VIAL IVP PRN (11:18)
[2020-06-29] MEDS: THIAMINE 100 MG TAB PO SCH (16:16)
[2020-06-29] MEDS ORDERED: ACETAMINOPHEN TAB 325 MG TAB PO PRN (18:28)
[2020-06-30] MEDS: THIAMINE 100 MG TAB PO SCH ×2 (06:48→16:43)
[2020-06-30 07:59] LABS: Basophils % (A) 0 %; Eosinophils % (A) 0 %; HCT 43.2 % (39.0-53.0); HGB 15.5 gm/dL (13.0-17.5); Lymphocytes # (A) 0.7 k/uL (1.0-4.8); Lymphocytes % (A) 7 %; MCH 34.5 pg (25.0-35.0); MCHC 35.8 g/dL (31.0-37.0); MCV 96.4 fL (80.0-100.0); Mean Platelet Volume 7.4; Monocytes # (A) 0.6 k/uL (0-1.0); Monocytes % (A) 6 %; Neutrophils # (A) 9.5 k/uL (1.3-7.7); Neutrophils % (A) 87 %; Platelet Count 175 k/uL (150-450); RBC 4.48 m/uL (4.30-5.90); WBC 10.9 k/uL (3.8-10.6)
[2020-06-30 08:14] LABS: African American GFR (CKD) >90 (>60 ml/min/1.73 sqM); Anion Gap 7 mmol/L; Blood Urea Nitrogen <2 mg/dL (9-20); Calcium 8.8 mg/dL (8.4-10.2); Carbon Dioxide 30 mmol/L (22-30); Chloride 100 mmol/L (98-107); Glucose 116 mg/dL (74-99); Magnesium 2.1 mg/dL (1.6-2.3); Non-African American GFR(CKD) >90 (>60 ml/min/1.73 sqM); Potassium 4.1 mmol/L (3.5-5.1); Sodium 137 mmol/L (137-145)
[2020-06-30] MEDS: ENOXAPARIN 40 MG/0.4 ML SYRINGE SQ SCH (08:43)
[2020-06-30] MEDS: PANTOPRAZOLE 40 MG/10 ML VIAL IVP SCH (08:43)
[2020-06-30] MEDS: LORazepam 2 MG/ML INJ IV PRN ×2 (08:44→18:10)
[2020-06-30] MEDS: MORPHINE SULFATE 4 MG/ML SYRINGE IV PRN ×2 (11:25→16:43)
--- NOTE | 2020-06-30 13:31 | P.PN ---
Subjective Progress Note Date: 06/30/20 Patient was seen and evaluated this morning. He still complaining of a lot of abdominal pain and epigastric area. He denies any nausea or vomiting. He has been nothing by mouth since yesterday. No acute events overnight reported by nursing staff. Objective - Vital Signs Vital signs: Vital Signs Temp 98.1 F 06/30/20 08:00 Pulse 90 06/30/20 11:28 Resp 20 06/30/20 11:28 BP 145/96 06/30/20 11:28 Pulse Ox 98 06/30/20 11:28 Intake & Output 06/29/20 06/30/20 06/30/20 18:59 06:59 18:59 Intake Total 320 Output Total 1100 Balance 320 -1100 Weight 75.9 kg 75.3 kg Intake: Intake, IV Titration 200 Amount Magnesium Sulfate-D5w Pmx 200 1 gm In Dextrose/Water 1 100ml.bag @ 100 mls/hr IVPB Q1H RACHEL Rx#: [id number] Oral 120 Output: Urine 1100 Other: Voiding Method Urinal Urinal # Voids 2 1 # Bowel Movements 2 - Exam General: The patient is awake and alert, in no distress Eye: there is normal conjunctiva bilaterally. Neck: The neck is supple, there is no JVD. Cardiovascular: Normal S1-S2, no S3-S4, no murmurs. Respiratory: Lungs clear to auscultation bilaterally Gastrointestinal: Abdomen is soft, there is moderate tenderness to palpation in the epigastric area Musculoskeletal: There is no pedal edema. Neurological:. Speech is normal. Skin: Skin is warm and dry - Labs CBC & Chem 7: 06/30/20 06:41 06/30/20 06:41 Labs: Abnormal Lab Results - Last 24 Hours (Table) 06/30/20 06/30/20 Range/Units 06:41 06:41 WBC 10.9 H (3.8-10.6) k/uL Neutrophils # 9.5 H (1.3-7.7) k/uL Lymphocytes # 0.7 L (1.0-4.8) k/uL BUN <2 L (9-20) mg/dL Glucose 116 H (74-99) mg/dL Assessment and Plan Assessment: This is a 29-year-old male with past medical history noted below who presented to the emergency room with severe abdominal pain. Patient was evaluated in the ER and admitted to the hospital for further management of his medical problems noted below. 1. Acute pancreatitis: Alcohol-induced. Computed tomography scan of the abdomen and pelvis showed severe pancreatitis with no evidence of abscess or necrosis. Continue aggressive IV fluid hydration with D5/half-normal saline at 150 mL per hour. Pain control with IV morphine 4 mg every 4 hours as needed for pain 2. Hypomagnesemia, replaced in the ER. 3. Alcohol abuse: Counseled extensively to quit. Ativan per [facility] protocol as needed. Vitamin replacement. 4. DVT prophylaxis with subcu Lovenox Today, I reviewed his medication list and lab work results. Continue current regimen. IV Protonix 40 mg daily. Repeat lab work in the morning. Consulted social work to provide resources for patient to help with alcohol cessation. Continue nothing by mouth until clinical improvement
[2020-06-30] MEDS: HYDROmorphone 1 MG/ML 1 ML SYRINGE IVP PRN (22:23)
[2020-07-01] MEDS: THIAMINE 100 MG TAB PO SCH ×2 (06:11→16:16)
[2020-07-01] MEDS: HYDROmorphone 1 MG/ML 1 ML SYRINGE IVP PRN ×3 (06:15→20:00)
[2020-07-01 08:27] LABS: Basophils % (A) 0 %; Eosinophils % (A) 0 %; HCT 39.4 % (39.0-53.0); HGB 14.3 gm/dL (13.0-17.5); Lymphocytes # (A) 0.5 k/uL (1.0-4.8); Lymphocytes % (A) 5 %; MCH 34.9 pg (25.0-35.0); MCHC 36.2 g/dL (31.0-37.0); MCV 96.3 fL (80.0-100.0); Mean Platelet Volume 8.1; Monocytes # (A) 0.8 k/uL (0-1.0); Monocytes % (A) 7 %; Neutrophils # (A) 9.9 k/uL (1.3-7.7); Neutrophils % (A) 87 %; Platelet Count 160 k/uL (150-450); RBC 4.09 m/uL (4.30-5.90); RDW 13.1 % (11.5-15.5); WBC 11.4 k/uL (3.8-10.6)
[2020-07-01] MEDS: ENOXAPARIN 40 MG/0.4 ML SYRINGE SQ SCH (08:38)
[2020-07-01] MEDS: PANTOPRAZOLE 40 MG/10 ML VIAL IVP SCH (08:38)
[2020-07-01 09:04] LABS: African American GFR (CKD) >90 (>60 ml/min/1.73 sqM); Anion Gap 9 mmol/L; Blood Urea Nitrogen 7 mg/dL (9-20); Calcium 8.3 mg/dL (8.4-10.2); Carbon Dioxide 27 mmol/L (22-30); Chloride 98 mmol/L (98-107); Glucose 86 mg/dL (74-99); Lipase 1885 U/L (23-300); Magnesium 2.1 mg/dL (1.6-2.3); Non-African American GFR(CKD) >90 (>60 ml/min/1.73 sqM); Sodium 134 mmol/L (137-145)
[2020-07-01] MEDS ORDERED: POTASSIUM CHLORIDE ER 20 MEQ TAB.ER PO STA (10:30)
[2020-07-01] MEDS ORDERED: POTASSIUM CHLORIDE 20 MEQ in WATER FOR INJECTION 1 100ML.BAG IVPB STA (10:30)
--- NOTE | 2020-07-01 13:35 | P.PN ---
Subjective Progress Note Date: 07/01/20 Patient is still complaining of abdominal pain even though it's better compared to yesterday. Patient's pain was not controlled with IV morphine yesterday and was transitioned to IV Dilaudid 2 mg every 4 hours. He has been nothing by mouth since admission. He reports feeling a little bit hungry today. No acute events overnight reported by nursing staff. Objective - Vital Signs Vital signs: Vital Signs Temp 98.5 F 07/01/20 08:30 Pulse 109 H 07/01/20 08:30 Resp 18 07/01/20 08:30 BP 122/69 07/01/20 08:30 Pulse Ox 100 07/01/20 08:30 Intake & Output 06/30/20 07/01/20 07/01/20 18:59 06:59 18:59 Intake Total 0 Output Total 400 1500 Balance -400 -1500 0 Weight 63.5 kg Intake: Oral 0 Output: Urine 400 1500 Other: Voiding Method Urinal - Exam General: The patient is awake and alert, in no distress Eye: there is normal conjunctiva bilaterally. Neck: The neck is supple, there is no JVD. Cardiovascular: Normal S1-S2, no S3-S4, no murmurs. Respiratory: Lungs clear to auscultation bilaterally Gastrointestinal: Abdomen is soft, there is mild tenderness to palpation in the epigastric area Musculoskeletal: There is no pedal edema. Neurological:. Speech is normal. Skin: Skin is warm and dry - Labs CBC & Chem 7: 07/01/20 06:57 07/01/20 06:57 Labs: Abnormal Lab Results - Last 24 Hours (Table) 07/01/20 07/01/20 Range/Units 06:57 06:57 WBC 11.4 H (3.8-10.6) k/uL RBC 4.09 L (4.30-5.90) m/uL Neutrophils # 9.9 H (1.3-7.7) k/uL Lymphocytes # 0.5 L (1.0-4.8) k/uL Sodium 134 L (137-145) mmol/L Potassium 3.0 L (3.5-5.1) mmol/L BUN 7 L (9-20) mg/dL Creatinine 0.57 L (0.66-1.25) mg/dL Calcium 8.3 L (8.4-10.2) mg/dL Lipase 1885 H (23-300) U/L Assessment and Plan Assessment: This is a 29-year-old male with past medical history noted below who presented to the emergency room with severe abdominal pain. Patient was evaluated in the ER and admitted to the hospital for further management of his medical problems noted below. 1. Acute pancreatitis: Alcohol-induced. Computed tomography scan of the abdomen and pelvis showed severe pancreatitis with no evidence of abscess or necrosis. Started on aggressive IV fluid hydration with D5/half-normal saline at 150 mL per hour since admission. Change fluids to normal saline at 15 minutes for our. Pain control with IV Dilaudid and dose will be decreased today to 1 mg every 4 hours as needed for pain. Start clear liquid diet today. 2. Hypomagnesemia, replaced in the ER. Hypokalemia, replacement or the 3. Alcohol abuse: Counseled extensively to quit. Ativan per [facility] protocol as needed. Vitamins replacement. 4. DVT prophylaxis with subcu Lovenox Today, I reviewed his medication list and lab work results. Continue current regimen. IV Protonix 40 mg daily. Repeat lab work in the morning. Consulted social work to provide resources for patient to help with alcohol cessation. Consider advancing diet as tolerated in the morning and possibly discharge later tomorrow
[2020-07-01] MEDS: SODIUM CHLORIDE 0.9% 1,000 ML IV SCH (14:23)
[2020-07-02] MEDS: HYDROmorphone 1 MG/ML 1 ML SYRINGE IVP PRN ×4 (00:10→14:16)
[2020-07-02] MEDS: THIAMINE 100 MG TAB PO SCH ×2 (06:33→17:04)
[2020-07-02 07:43] LABS: Basophils % (A) 0 %; Eosinophils # (A) 0.1 k/uL (0-0.7); Eosinophils % (A) 1 %; HCT 39.1 % (39.0-53.0); HGB 13.8 gm/dL (13.0-17.5); Lymphocytes # (A) 0.8 k/uL (1.0-4.8); Lymphocytes % (A) 7 %; MCH 34.5 pg (25.0-35.0); MCHC 35.4 g/dL (31.0-37.0); MCV 97.6 fL (80.0-100.0); Mean Platelet Volume 7.5; Monocytes # (A) 1.1 k/uL (0-1.0); Monocytes % (A) 10 %; Neutrophils # (A) 8.3 k/uL (1.3-7.7); Neutrophils % (A) 80 %; Platelet Count 182 k/uL (150-450); RBC 4.01 m/uL (4.30-5.90); RDW 13.3 % (11.5-15.5); WBC 10.5 k/uL (3.8-10.6)
[2020-07-02] MEDS: PANTOPRAZOLE 40 MG/10 ML VIAL IVP SCH (07:53)
[2020-07-02] MEDS: ENOXAPARIN 40 MG/0.4 ML SYRINGE SQ SCH (07:53)
[2020-07-02 08:06] LABS: African American GFR (CKD) >90 (>60 ml/min/1.73 sqM); Anion Gap 5 mmol/L; Blood Urea Nitrogen 5 mg/dL (9-20); Calcium 8.8 mg/dL (8.4-10.2); Carbon Dioxide 29 mmol/L (22-30); Chloride 101 mmol/L (98-107); Glucose 115 mg/dL (74-99); Magnesium 2.1 mg/dL (1.6-2.3); Non-African American GFR(CKD) >90 (>60 ml/min/1.73 sqM); Sodium 135 mmol/L (137-145)
[2020-07-02] MEDS: SODIUM CHLORIDE 0.9% 1,000 ML IV SCH (08:52)
[2020-07-02] MEDS ORDERED: HYDROcodone/APAP 5-325MG 1 EACH TAB PO PRN (09:15)
[2020-07-02] MEDS: HYDROcodone/APAP 10-325MG 1 EACH TAB PO PRN ×3 (11:28→23:34)
[2020-07-02] MEDS: ONDANSETRON 4 MG/2 ML VIAL IVP PRN (12:29)
--- NOTE | 2020-07-02 15:36 | P.PN ---
<Alonso Euceda - Last Filed: 07/02/20 15:23> Subjective Progress Note Date: 07/02/20 Principal diagnosis: Pancreatitis Hospital course: Patient is a 29-year-old male with a past medical history of EtOH use/abuse reportedly drinking a fifth of vodka daily and previous IVDA with heroin last time reported using being >5 years ago. He presented to the hospital on 06/29/20 with a chief complaint of severe abdominal pain and was seen and fully evaluated in the emergency department with diagnosis of pancreatitis with amylase of 407 and lipase of [address] abdomen and pelvis with contrast confirming with findings reporting to be compatible with acute pancreatitis and hepatomegaly. Patient admitted under our services for continued close medical management. Physical exam: General: non toxic, no distress, appears at stated age Derm: warm, dry Head: atraumatic, normocephalic, symmetric Eyes: EOMI, no lid lag, anicteric sclera Mouth: no lip lesion, mucus membranes moist Cardiovascular: S1S2 reg, no murmur, positive posterior tibial pulse bilaterally, no edema, cap refill less than 2 seconds Lungs: Respirations even, regular, and unlabored. Lungs CTA bilaterally, no rhonchi, no rales, no wheezing or no accessory muscle use Abdominal: Abdomen soft nondistended , patient reports diffuse tenderness with mild palpation throughout all quadrants of abdomen, no appreciable organomegaly. Ext: no gross muscle atrophy, no edema, no contractures Neuro: CN II-XI grossly intact, no focal neuro deficits Psych: Alert, oriented, appropriate affect Plan of care: Acute pancreatitis -Lipase is improving and is down to 1885 from previous 6122. -The patient continues to receive IV pain medications around the clock every 4 hours Dilaudid 1 mg. At this time we will decreased IV pain medications to Dilaudid 0.5 mg every 6 hours and added [place] 10/325 mg every 6 hours. -Full liquid diet and advance as patient tolerates to low-fat diet -Leukocytosis has resolved from previous 14.3 upon admission down to 10.5 this morning. We will repeat CBC, BMP, liver profile, and lipase with a.m. labs. EtOH abuse -WA protocol in place with symptom triggered medication management with Ativan -Patient received 7 mg of Ativan during first 24 hours here and has not received any Ativan in the past 24 hours. -Patient to receive continued education regarding risks of continued alcohol use and abuse up to and including , encouragement of alcohol cessation, and information regarding outpatient treatment programs and assistance. CODE STATUS: Full code DVT prophylaxis: Lovenox Discussed with: Patient and RN Anticipated discharge date: Tomorrow morning Anticipated discharge place: Home A total of 45 minutes was spent on the care of this complex patient more than 50% of the time was spent in counseling and care coordination. Objective - Vital Signs Vital signs: Vital Signs Temp 98.8 F 07/02/20 07:49 Pulse 108 H 07/02/20 07:49 Resp 18 07/02/20 07:49 BP 126/66 07/02/20 07:49 Pulse Ox 95 07/02/20 07:49 Intake & Output 07/01/20 07/02/20 07/02/20 18:59 06:59 18:59 Intake Total 240 Output Total 350 600 Balance -110 -600 Weight 63 kg Intake: Oral 240 Output: Urine 350 600 Other: Voiding Method Urinal Urinal Urinal # Voids 1 - Labs CBC & Chem 7: 07/02/20 06:29 07/02/20 06:29 Labs: Abnormal Lab Results - Last 24 Hours (Table) 07/02/20 07/02/20 Range/Units 06:29 06:29 RBC 4.01 L (4.30-5.90) m/uL Neutrophils # 8.3 H (1.3-7.7) k/uL Lymphocytes # 0.8 L (1.0-4.8) k/uL Monocytes # 1.1 H (0-1.0) k/uL Sodium 135 L (137-145) mmol/L BUN 5 L (9-20) mg/dL Glucose 115 H (74-99) mg/dL <Asiya Ruggiero - Last Filed: 07/02/20 16:35> Objective - Vital Signs Vital signs: Vital Signs Temp 99 F 07/02/20 11:23 Pulse 105 H 07/02/20 11:23 Resp 18 07/02/20 11:23 BP 123/80 07/02/20 11:23 Pulse Ox 96 07/02/20 11:23 Intake & Output 07/01/20 07/02/20 07/02/20 18:59 06:59 18:59 Intake Total 240 460 Output Total 350 600 916 Balance -110 -600 -456 Weight 63 kg Intake: Oral 240 460 Output: Urine 350 600 700 Post Void Residual 216 Other: Voiding Method Urinal Urinal Urinal # Voids 1 - Labs CBC & Chem 7: 07/02/20 06:29 07/02/20 06:29 Labs: Abnormal Lab Results - Last 24 Hours (Table) 07/02/20 07/02/20 Range/Units 06:29 06:29 RBC 4.01 L (4.30-5.90) m/uL Neutrophils # 8.3 H (1.3-7.7) k/uL Lymphocytes # 0.8 L (1.0-4.8) k/uL Monocytes # 1.1 H (0-1.0) k/uL Sodium 135 L (137-145) mmol/L BUN 5 L (9-20) mg/dL Glucose 115 H (74-99) mg/dL Assessment and Plan Assessment: Patient seen and examined independently. Patient was also seen by Alonso Euceda NP and case was discussed. I am in agreement with subjective, physical exam, assessment and plan as written above and amended below. States that his abdominal pain is slowly improving. It typically he has a faster turn around and this with his pancreatitis. He has had several bouts in the past. We discussed the importance of decreasing his pain medications and he is in agreement. He would like his diet advanced. General: non toxic, no distress, appears at stated age Derm: warm, dry, multiple tattoos Head: atraumatic, normocephalic, symmetric Eyes: EOMI, no lid lag, anicteric sclera Mouth: no lip lesion, mucus membranes dry Cardiovascular: S1S2 reg, no murmur, positive posterior tibial pulse bilateral, Lungs: Decreased breath sounds bilateral, no rhonchi, no rales , no accessory muscle use Abdominal: soft, [tender to palpation diffusely, no guarding, no appreciable organomegaly Ext: no gross muscle atrophy, no edema, no contractures Neuro: CN II-XI grossly intact, no focal neuro deficits Psych: Alert, oriented, appropriate affect
[2020-07-02] MEDS: HYDROmorphone 0.5 MG/0.5 ML SYRINGE IVP PRN (20:15)
[2020-07-03] MEDS: HYDROmorphone 0.5 MG/0.5 ML SYRINGE IVP PRN ×3 (02:16→15:46)
[2020-07-03] MEDS: SODIUM CHLORIDE 0.9% 1,000 ML IV SCH ×2 (06:09→15:48)
[2020-07-03] MEDS: HYDROcodone/APAP 10-325MG 1 EACH TAB PO PRN ×3 (06:10→19:54)
[2020-07-03] MEDS: THIAMINE 100 MG TAB PO SCH ×2 (06:11→17:01)
[2020-07-03] MEDS: ENOXAPARIN 40 MG/0.4 ML SYRINGE SQ SCH (08:32)
[2020-07-03] MEDS: PANTOPRAZOLE 40 MG/10 ML VIAL IVP SCH (08:32)
[2020-07-03] MEDS: polyethylene glycoL 3350 17 GM POWD.PACK PO SCH (12:19)
[2020-07-03] MEDS: ONDANSETRON 4 MG/2 ML VIAL IVP PRN (12:19)
--- NOTE | 2020-07-03 12:24 | CT ---
EXAMINATION TYPE: CT abdomen pelvis w con DATE OF EXAM: 07/03/2020 COMPARISON: 06/29/2020 HISTORY: generalized abominal pain CT DLP: 609.9 mGycm CONTRAST: CT scan of the abdomen and pelvis is performed without Oral Contrast and with IV Contrast, patient in jected with 100 mL of Isovue 300. FINDINGS: LUNG BASES-:. Left lower lobe pleural effusion and a small right-sided effusion with basilar compressive atelectasi s. LIVER/GB: No calcified gallstones. No space occupying hepatic lesion. Biliary tree is of normal ca liber. PANCREAS: Diffuse edema persists of the pancreas with surrounding fluid noted and inflammatory change s compatible with acute pancreatitis. No shayne pseudocyst formation seen at this time. No evidence fo r abscess or necrosis at this time. SPLEEN: No splenic enlargement. No lesion seen. ADRENALS: No nodule. No thickening. KIDNEYS/BLADDER: No hydronephrosis. No nephrolithiasis. No distinct renal mass. Urinary bladder g rossly unremarkable. BOWEL: Normal appendix. Normal bowel caliber. No inflammation. GENITAL ORGANS: No gross abnormality. LYMPH NODES: No greater than 1cm abdominal or pelvic lymph nodes are appreciated. AORTA: No significant abnormality. OSSEOUS STRUCTURES: No significant abnormality is seen. OTHER: No significant additional abnormality is seen. IMPRESSION: 1. Persistent features of moderately severe pancreatitis.
--- NOTE | 2020-07-03 16:07 | P.PN ---
<Alonso Euceda - Last Filed: 07/03/20 15:56> Subjective Progress Note Date: 07/03/20 Principal diagnosis: Pancreatitis Hospital course: Patient is a 29-year-old male with a past medical history of EtOH use/abuse reportedly drinking a fifth of vodka daily and previous IVDA with heroin last time reported using being >5 years ago. He presented to the hospital on 06/29/20 with a chief complaint of severe abdominal pain and was seen and fully evaluated in the emergency department with diagnosis of pancreatitis with amylase of 407 and lipase of [address] abdomen and pelvis with contrast confirming with findings reporting to be compatible with acute pancreatitis and hepatomegaly. Patient admitted under our services for continued close medical management. Patient has been receiving fluid hydration and pain management. Diffuse abdominal pain remains. A repeat CT abdomen and pelvis with IV contrast was ordered revealing persistent features of moderately severe pancreatitis with diffuse edema persisting around the pancreas with surrounding fluid and inflammatory changes compatible with acute pancreatitis, no shayne pseudocyst formation seen at this time, and no evidence for abscess or necrosis at this time. Physical exam: Pertinent seen and evaluated at bedside this morning. He reports continued diffuse abdominal pain. Stating it has minimally improved previously 10 out of 10 now reading 8 out of 10. He has continued to receive pain medication around the clock. Upon assessment patient was noted to have significant tenderness upon palpation to left upper, epigastric region, and right upper quadrants of his abdomen. Patient denies having headache, lightheadedness, dizziness, chest pain or palpitations shortness of breath, or experiencing any episodes of vomiting. A repeat CT abdomen and pelvis with IV contrast was ordered revealing persistent features of moderately severe pancreatitis with diffuse edema persisting around the pancreas with surrounding fluid and inflammatory changes compatible with acute pancreatitis, no shayne pseudocyst formation seen at this time, and no evidence for abscess or necrosis at this time. We will continue with IV hydration with 0.9% normal saline at 125 mL's. We will continue to attempt to advance patient's diet as he tolerates. We'll continue to monitor with repeat a.m. labs. General: non toxic, no distress, appears at stated age Derm: warm, dry Head: atraumatic, normocephalic, symmetric Eyes: EOMI, no lid lag, anicteric sclera Mouth: no lip lesion, mucus membranes moist Cardiovascular: S1S2 reg, no murmur, gallop or rub. Positive posterior tibial pulses bilaterally, no edema, cap refill less than 2 seconds. Lungs: Respirations even, regular, and unlabored. Lungs CTA bilaterally, no rhonchi, no rales, no wheezing or no accessory muscle use Abdominal: Abdomen soft nondistended, patient reports continued diffuse tenderness with mild palpation throughout all quadrants of abdomen, worse in left upper, epigastric region and right upper quadrants. Ext: no gross muscle atrophy, no edema, no contractures Neuro: CN II-XI grossly intact, no focal neuro deficits Psych: Alert, oriented, appropriate affect Plan of care: Acute pancreatitis -Lipase is improving and is down to 1885 from previous 6122. -CT abdomen and pelvis with IV contrast revealing persistent features of moderately severe pancreatitis with diffuse edema persisting around the pancreas with surrounding fluid and inflammatory changes compatible with acute pancreatitis, no shayne pseudocyst formation seen at this time, and no evidence f or abscess or necrosis at this time. -The patient continues to receive Dilaudid 0.5 mg every 6 hours and added [place] 10/325 mg every 6 hours. -Full liquid diet and advance as patient tolerates to low-fat diet -Leukocytosis has resolved from previous 14.3 upon admission down to 10.5 this morning. We will repeat CBC, BMP, liver profile, and lipase with a.m. labs. EtOH abuse -WA protocol in place with symptom triggered medication management with Ativan -Patient received 7 mg of Ativan during first 24 hours here and has not received any Ativan in the past 24 hours. -Patient to receive continued education regarding risks of continued alcohol use and abuse up to and including , encouragement of alcohol cessation, and information regarding outpatient treatment programs and assistance. CODE STATUS: Full code DVT prophylaxis: Lovenox Discussed with: Patient and RN Anticipated discharge date: Clinical course to determine, possibly over the next 1-[address]: Home A total of 45 minutes was spent on the care of this complex patient more than 50% of the time was spent in counseling and care coordination. Objective - Vital Signs Vital signs: Vital Signs Temp 98.5 F 07/03/20 08:00 Pulse 108 H 07/03/20 08:00 Resp 16 07/03/20 08:00 BP 109/80 07/03/20 08:00 Pulse Ox 97 07/03/20 08:00 Intake & Output 07/02/20 07/03/20 07/03/20 18:59 06:59 18:59 Intake Total 460 2215 125 Output Total 916 1650 Balance -456 565 125 Weight 64.5 kg Intake: Intake, IV Titration 1375 Amount Sodium Chloride 0.9% 1, 1375 000 ml @ 125 mls/hr IV . Q8H [facility] Rx#:[id number] Oral 460 840 125 Output: Urine 700 1650 Post Void Residual 216 Other: Voiding Method Urinal Urinal Urinal # Voids 2 - Labs CBC & Chem 7: 07/02/20 06:29 07/02/20 06:29 <Asiya Ruggiero - Last Filed: 07/03/20 17:25> Objective - Vital Signs Vital signs: Vital Signs Temp 98.6 F 07/03/20 14:00 Pulse 96 07/03/20 14:00 Resp 16 07/03/20 14:00 BP 129/83 07/03/20 14:00 Pulse Ox 98 07/03/20 14:00 Intake & Output 07/02/20 07/03/20 07/03/20 18:59 06:59 18:59 Intake Total 460 2215 250 Output Total 916 1650 Balance -456 565 250 Weight 64.5 kg Intake: Intake, IV Titration 1375 Amount Sodium Chloride 0.9% 1, 1375 000 ml @ 125 mls/hr IV . Q8H [facility] Rx#:[id number] Oral 460 840 250 Output: Urine 700 1650 Post Void Residual 216 Other: Voiding Method Urinal Urinal Urinal # Voids 2 - Labs CBC & Chem 7: 07/02/20 06:29 07/02/20 06:29 Assessment and Plan Assessment: Patient seen and examined independently. Patient was also seen by Alonso Euceda NP and case was discussed. I am in agreement with subjective, physical exam, assessment and plan as written above and amended below. He continues to have abdominal pain. No nausea or vomiting. States pain was slightly worse after eating. General: non toxic, no distress, appears at stated age Derm: warm, dry Head: atraumatic, normocephalic, symmetric Eyes: EOMI, no lid lag, anicteric sclera Mouth: no lip lesion, mucus membranes moist Cardiovascular: S1S2 reg, no murmur, positive posterior tibial pulse bilateral, Lungs: CTA bilateral, no rhonchi, no rales , no accessory muscle use Abdominal: soft, tender to palpation epigastric with mild prominence to the right of umbilicus, no guarding, no appreciable organomegaly CT abdomen/pelvis obtained no pseudocyst continued severe pancreatitis
[2020-07-03] MEDS ORDERED: HYDROmorphone 1 MG/ML 1 ML SYRINGE IM PRN (16:50)
[2020-07-03] MEDS: MELATONIN 3 MG TABLET PO SCH (21:11)
[2020-07-03] MEDS: HYDROmorphone 1 MG/ML 1 ML SYRINGE IVP PRN (22:00)
[2020-07-04] MEDS: HYDROmorphone 1 MG/ML 1 ML SYRINGE IVP PRN ×5 (02:19→21:13)
[2020-07-04] MEDS: SODIUM CHLORIDE 0.9% 1,000 ML IV SCH ×4 (02:22→23:36)
[2020-07-04] MEDS: HYDROcodone/APAP 10-325MG 1 EACH TAB PO PRN ×3 (04:22→22:22)
[2020-07-04] MEDS: THIAMINE 100 MG TAB PO SCH ×2 (06:33→16:29)
[2020-07-04] MEDS: polyethylene glycoL 3350 17 GM POWD.PACK PO SCH (08:11)
[2020-07-04] MEDS: PANTOPRAZOLE 40 MG/10 ML VIAL IVP SCH (08:11)
[2020-07-04] MEDS: ENOXAPARIN 40 MG/0.4 ML SYRINGE SQ SCH (08:11)
[2020-07-04 08:43] LABS: HGB 12.7 gm/dL (13.0-17.5); MCH 34.8 pg (25.0-35.0); MCHC 35.3 g/dL (31.0-37.0); MCV 98.7 fL (80.0-100.0); Mean Platelet Volume 7.6; Platelet Count 331 k/uL (150-450); RBC 3.65 m/uL (4.30-5.90); RDW 13.4 % (11.5-15.5); WBC 10.4 k/uL (3.8-10.6)
[2020-07-04 09:09] LABS: ALT 69 U/L (4-49); AST 72 U/L (17-59); African American GFR (CKD) >90 (>60 ml/min/1.73 sqM); Albumin 3.2 g/dL (3.5-5.0); Alkaline Phosphatase 133 U/L (38-126); Anion Gap 7 mmol/L; Blood Urea Nitrogen 3 mg/dL (9-20); Calcium 8.9 mg/dL (8.4-10.2); Carbon Dioxide 30 mmol/L (22-30); Chloride 99 mmol/L (98-107); Glucose 144 mg/dL (74-99); Lipase 1221 U/L (23-300); Non-African American GFR(CKD) >90 (>60 ml/min/1.73 sqM); Potassium 3.2 mmol/L (3.5-5.1); Sodium 136 mmol/L (137-145); Total Bilirubin 0.7 mg/dL (0.2-1.3); Total Protein 5.9 g/dL (6.3-8.2)
[2020-07-04] MEDS ORDERED: POTASSIUM CHLORIDE ER 20 MEQ TAB.ER PO STA (12:22)
--- NOTE | 2020-07-04 12:33 | P.PN ---
<Alonso Euceda - Last Filed: 07/04/20 12:24> Subjective Progress Note Date: 07/04/20 Principal diagnosis: Pancreatitis Hospital course: Patient is a 29-year-old male with a past medical history of EtOH use/abuse reportedly drinking a fifth of vodka daily and previous IVDA with heroin last time reported using being >5 years ago. He presented to the hospital on 06/29/20 with a chief complaint of severe abdominal pain and was seen and fully evaluated in the emergency department with diagnosis of pancreatitis with amylase of 407 and lipase of [address] abdomen and pelvis with contrast confirming with findings reporting to be compatible with acute pancreatitis and hepatomegaly. Patient admitted under our services for continued close medical management. Patient has been receiving fluid hydration and pain management. Diffuse abdominal pain remains. A repeat CT abdomen and pelvis with IV contrast was completed on 07/03/20 revealing persistent features of moderately severe pancreatitis with diffuse edema persisting around the pancreas with surrounding fluid and inflammatory changes compatible with acute pancreatitis, no shayne pseudocyst formation seen at this time, and no evidence for abscess or necrosis at this time. Physical exam: 07/04/20: Pertinent seen and evaluated at bedside this morning. He reports continued diffuse abdominal pain. Stating it has minimally improved previously 10 out of 10 now rating 7-8/10 at this time. He continues to receive pain medication around the clock, but reports since increasing dose yesterday it helps controlling his pain much better. 0.9% normal saline infusion increased back to 175 mL's per hour. Patient to remain on clear liquid diet only. Mornin g lipase 1221 also patient showing Elevation of liver enzymes with AST of 72, ALP of 69, and alkaline phosphatase of 133. Potassium 3.2 and replaced. General: non toxic, no distress, appears at stated age Derm: warm, dry Head: atraumatic, normocephalic, symmetric Eyes: EOMI, no lid lag, anicteric sclera Mouth: no lip lesion, mucus membranes moist Cardiovascular: S1S2 reg, no murmur, gallop or rub. Positive posterior tibial pulses bilaterally, no edema, cap refill less than 2 seconds. Lungs: Respirations even, regular, and unlabored. Lungs CTA bilaterally, no rhonchi, no rales, no wheezing or no accessory muscle use Abdominal: Abdomen soft nondistended, patient reports continued diffuse tenderness with mild palpation throughout all quadrants of abdomen, worse in l eft upper, epigastric region and right upper quadrants. Ext: no gross muscle atrophy, no edema, no contractures Neuro: CN II-XI grossly intact, no focal neuro deficits Psych: Alert, oriented, appropriate affect Plan of care: Acute pancreatitis -Lipase is improving and is down to 1221 from previous 6122. -CT abdomen and pelvis with IV contrast revealing persistent features of moderately severe pancreatitis with diffuse edema persisting around the pancreas with surrounding fluid and inflammatory changes compatible with acute pancreatitis, no shayne pseudocyst formation seen at this time, and no evidence for abscess or necrosis at this time. -The patient continues to receive Dilaudid 0.5 mg every 6 hours and added [place] 10/325 mg every 6 hours. -Full liquid diet and advance as patient tolerates to low-fat diet -Leukocytosis has resolved from previous 14.3 upon admission down to 10.5 this morning. We will repeat CBC, BMP, liver profile, and lipase with a.m. labs. Elevation of liver enzymes -Elevated liver enzymes with AST of 72, ALP of 69, and alkaline phosphatase of 133. -We will continue to monitor closely with repeat a.m. labs. Hypokalemia -Potassium 3.2 and replaced. -We will continue to monitor closely with repeat a.m. labs. EtOH abuse -CIWA protocol in place with symptom triggered medication management with Ativan -Patient received 7 mg of Ativan during first 24 hours here and has not received any Ativan in the past 24 hours. -Patient to receive continued education regarding risks of continued alcohol use and abuse up to and including , encouragement of alcohol cessation, and information regarding outpatient treatment programs and assistance. CODE STATUS: Full code DVT prophylaxis: Lovenox Discussed with: Patient and RN Anticipated discharge date: Clinical course to determine, possibly over the next 1-[address]: Home A total of 45 minutes was spent on the care of this complex patient more than 50% of the time was spent in counseling and care coordination. Objective - Vital Signs Vital signs: Vital Signs Temp 98.0 F 07/04/20 08:00 Pulse 79 07/04/20 08:00 Resp 16 07/04/20 08:00 BP 125/83 07/04/20 08:00 Pulse Ox 99 07/04/20 08:00 Intake & Output 07/03/20 07/04/2021 18:59 06:59 18:59 Intake Total 375 125 Output Total 300 2550 Balance 75 -2550 125 Intake: Oral 375 125 Output: Urine 300 2550 Other: Voiding Method Urinal Urinal Urinal - Labs CBC & Chem 7: 07/04/20 08:03 07/04/20 08:03 Labs: Abnormal Lab Results - Last 24 Hours (Table) 07/04/20 07/04/20 Range/Units 08:03 08:03 RBC 3.65 L (4.30-5.90) m/uL Hgb 12.7 L (13.0-17.5) gm/dL Hct 36.0 L (39.0-53.0) % Sodium 136 L (137-145) mmol/L Potassium 3.2 L (3.5-5.1) mmol/L BUN 3 L (9-20) mg/dL Creatinine 0.53 L (0.66-1.25) mg/dL Glucose 144 H (74-99) mg/dL AST 72 H (17-59) U/L ALT 69 H (4-49) U/L Alkaline Phosphatase 133 H (38-126) U/L Total Protein 5.9 L (6.3-8.2) g/dL Albumin 3.2 L (3.5-5.0) g/dL Lipase 1221 H (23-300) U/L <Asiya Ruggiero A - Last Filed: 07/04/20 15:44> Objective - Vital Signs Vital signs: Vital Signs Temp 98.0 F 07/04/20 08:00 Pulse 79 07/04/20 08:00 Resp 16 07/04/20 08:00 BP 125/83 07/04/20 08:00 Pulse Ox 99 07/04/20 08:00 Intake & Output 07/03/20 07/04/20 07/04/20 18:59 06:59 18:59 Intake Total 375 125 Output Total 300 2550 Balance 75 -2550 125 Weight 64.5 kg Intake: Oral 375 125 Output: Urine 300 2550 Other: Voiding Method Urinal Urinal Urinal - Labs CBC & Chem 7: 07/04/20 08:03 07/04/20 08:03 Labs: Abnormal Lab Results - Last 24 Hours (Table) 07/04/20 07/04/20 Range/Units 08:03 08:03 RBC 3.65 L (4.30-5.90) m/uL Hgb 12.7 L (13.0-17.5) gm/dL Hct 36.0 L (39.0-53.0) % Sodium 136 L (137-145) mmol/L Potassium 3.2 L (3.5-5.1) mmol/L BUN 3 L (9-20) mg/dL Creatinine 0.53 L (0.66-1.25) mg/dL Glucose 144 H (74-99) mg/dL AST 72 H (17-59) U/L ALT 69 H (4-49) U/L Alkaline Phosphatase 133 H (38-126) U/L Total Protein 5.9 L (6.3-8.2) g/dL Albumin 3.2 L (3.5-5.0) g/dL Lipase 1221 H (23-300) U/L Assessment and Plan Assessment: Patient seen and examined independently. Patient was also seen by Alonso Euceda NP and case was discussed. I am in agreement with subjective, physical exam, assessment and plan as written above and amended below. he continues to have abdominal pain, decreased appetite.feels as though he is not urinating enough. General: non toxic, no distress, appears at stated age Derm: warm, dry Head: atraumatic, normocephalic, symmetric Eyes: EOMI, no lid lag, anicteric sclera Mouth: no lip lesion, mucus membranes moist Cardiovascular: S1S2 reg, no murmur, positive posterior tibial pulse bilateral, Lungs: CTA bilateral, no rhonchi, no rales , no accessory muscle use Abdominal: soft, [ tender to palpation diffusely with worse to the right of umbilicus, no guarding, no appreciable organomegaly Ext: no gross muscle atrophy, no edema, no contractures Neuro: CN II-XI grossly intact, no focal neuro deficits Psych: Alert, oriented, appropriate affect acute alcoholic pancreatitis continue with clear liquid diet, pain medications, increase IV fluids. Continue to monitor.
[2020-07-04 14:29] VITALS: BMI 19.8
[2020-07-04] MEDS: MELATONIN 3 MG TABLET PO SCH (21:13)
[2020-07-05] MEDS: HYDROmorphone 1 MG/ML 1 ML SYRINGE IVP PRN ×6 (01:59→20:53)
[2020-07-05] MEDS: SODIUM CHLORIDE 0.9% 1,000 ML IV SCH ×4 (05:28→17:20)
[2020-07-05] MEDS: THIAMINE 100 MG TAB PO SCH ×2 (05:29→17:22)
[2020-07-05] MEDS: PANTOPRAZOLE 40 MG/10 ML VIAL IVP SCH (07:35)
[2020-07-05] MEDS: ENOXAPARIN 40 MG/0.4 ML SYRINGE SQ SCH (07:36)
[2020-07-05] MEDS: HYDROcodone/APAP 10-325MG 1 EACH TAB PO PRN ×3 (07:36→23:10)
[2020-07-05] MEDS: polyethylene glycoL 3350 17 GM POWD.PACK PO SCH (07:37)
[2020-07-05 10:22] LABS: ALT 52 U/L (4-49); AST 41 U/L (17-59); African American GFR (CKD) >90 (>60 ml/min/1.73 sqM); Albumin 2.8 g/dL (3.5-5.0); Alkaline Phosphatase 135 U/L (38-126); Anion Gap 6 mmol/L; Blood Urea Nitrogen 2 mg/dL (9-20); Calcium 8.5 mg/dL (8.4-10.2); Carbon Dioxide 28 mmol/L (22-30); Chloride 103 mmol/L (98-107); Glucose 131 mg/dL (74-99); Magnesium 1.8 mg/dL (1.6-2.3); Non-African American GFR(CKD) >90 (>60 ml/min/1.73 sqM); Potassium 3.4 mmol/L (3.5-5.1); Sodium 137 mmol/L (137-145); Total Bilirubin 0.5 mg/dL (0.2-1.3); Total Protein 5.2 g/dL (6.3-8.2)
[2020-07-05] MEDS ORDERED: POTASSIUM BICARBONATE/CIT AC 20 MEQ TABLET.EFF PO ONE (10:47)
--- NOTE | 2020-07-05 13:26 | P.PN ---
<Alonso Euceda - Last Filed: 07/05/20 13:16> Subjective Progress Note Date: 07/05/20 Principal diagnosis: Pancreatitis Hospital course: Patient is a 29-year-old male with a past medical history of EtOH use/abuse reportedly drinking a fifth of vodka daily and previous IVDA with heroin last time reported using being >5 years ago. He presented to the hospital on 06/29/20 with a chief complaint of severe abdominal pain and was seen and fully evaluated in the emergency department with diagnosis of pancreatitis with amylase of 407 and lipase of [address] abdomen and pelvis with contrast confirming with findings reporting to be compatible with acute pancreatitis and hepatomegaly. Patient admitted under our services for continued close medical management. Patient has been receiving fluid hydration and pain management. Diffuse abdominal pain remains. A repeat CT abdomen and pelvis with IV contrast was completed on 07/03/20 revealing persistent features of moderately severe pancreatitis with diffuse edema persisting around the pancreas with surrounding fluid and inflammatory changes compatible with acute pancreatitis, no shayne pseudocyst formation seen at this time, and no evidence for abscess or necrosis at this time. Physical exam: 07/05/20: Pertinent seen and evaluated at bedside this morning. He reports continued diffuse abdominal pain and continues to require [id number] pain medications. He remains on clear liquid diet, but reports increased pain after drinking liquids. Pt placed back on NPO status at this time. IV fluids to continue infusing at 175 mL/hour. Consult also placed to GI for further evaluation. Patient updated regarding the plan of care and denied having any further questions at this time. He denies having any chest pain, palpitations, shortness of breath or experiencing any episodes of vomiting. General: non toxic, no distress, appears at stated age Derm: warm, dry Head: atraumatic, normocephalic, symmetric Eyes: EOMI, no lid lag, anicteric sclera Mouth: no lip lesion, mucus membranes moist Cardiovascular: S1S2 reg, no murmur, gallop or rub. Positive posterior tibial pulses bilaterally, no edema, cap refill less than 2 seconds. Lungs: Respirations even, regular, and unlabored. Lungs CTA bilaterally, no rhonchi, no rales, no wheezing or no accessory muscle use Abdominal: Abdomen soft nondistended, patient reports continued diffuse tenderness with mild palpation throughout all quadrants of abdomen, worse in left upper, epigastric region and right upper quadrants. Ext: no gross muscle atrophy, no edema, no contractures Neuro: CN II-XI grossly intact, no focal neuro deficits Psych: Alert, oriented, appropriate affect Plan of care: Acute pancreatitis -Lipase is improving and is down to 1221 from previous 6122. -CT abdomen and pelvis with IV contrast revealing persistent features of moderately severe pancreatitis with diffuse edema persisting around the pancreas with surrounding fluid and inflammatory changes compatible with acute pancreatitis, no shayne pseudocyst formation seen at this time, and no evidence for abscess or necrosis at this time. -The patient continues to receive Dilaudid 0.5 mg every 6 hours and added [place] 10/325 mg every 6 hours. -Full liquid diet and advance as patient tolerates to low-fat diet -Leukocytosis has resolved from previous 14.3 upon admission down to 10.5 this morning. We will repeat CBC, BMP, liver profile, and lipase with a.m. labs. Transaminitis, improving -Elevated liver enzymes with AST of 41, ALT of 52, and alkaline phosphatase of 135. -We will continue to monitor closely with repeat a.m. labs. Hypokalemia -Potassium 3.4 and replaced. -We will continue to monitor closely with repeat a.m. labs. EtOH abuse -CIWA protocol in place with symptom triggered medication management with Ativan -Patient received 7 mg of Ativan during first 24 hours here and has not received any doses after. -Patient to receive continued education regarding risks of continued alcohol use and abuse up to and including , encouragement of alcohol cessation, and information regarding outpatient treatment programs and assistance. CODE STATUS: Full code DVT prophylaxis: Lovenox Discussed with: Patient and RN Anticipated discharge date: Clinical course to determine, possibly over the next 1-[address]: Home A total of 45 minutes was spent on the care of this complex patient more than 50% of the time was spent in counseling and care coordination. Objective - Vital Signs Vital signs: Vital Signs Temp 98.3 F 07/05/20 08:00 Pulse 86 07/05/20 08:00 Resp 18 07/05/20 08:00 BP 138/88 07/05/20 08:00 Pulse Ox 98 07/05/20 08:00 Intake & Output 07/04/20 07/05/20 07/05/20 18:59 06:59 18:59 Intake Total 611 480 0 Output Total 1750 1350 Balance -1139 -870 0 Weight 64.5 kg 64.4 kg Intake: Oral 611 480 0 Output: Urine 1750 1350 Other: Voiding Method Urinal Urinal - Labs CBC & Chem 7: 07/04/20 08:03 07/05/20 08:53 <Asiya Ruggiero - Last Filed: 07/05/20 17:44> Objective - Vital Signs Vital signs: Vital Signs Temp 97.7 F 07/05/20 14:04 Pulse 84 07/05/20 14:04 Resp 18 07/05/20 14:04 BP 132/96 07/05/20 14:04 Pulse Ox 98 07/05/20 14:04 Intake & Output 07/04/20 07/05/20 07/05/20 18:59 06:59 18:59 Intake Total 289 685 6206 Output Total 1750 1350 Balance -1139 -870 1400 Weight 64.5 kg 64.4 kg Intake: Intake, IV Titration 1400 Amount Sodium Chloride 0.9% 1, 1400 000 ml @ 175 mls/hr IV . Q5H43M [facility] Rx#:[id number] Oral 611 480 0 Output: Urine 1750 1350 Other: Voiding Method Urinal Urinal - Labs CBC & Chem 7: 07/04/20 08:03 07/05/20 08:53 Labs: Abnormal Lab Results - Last 24 Hours (Table) 07/05/20 Range/Units 08:53 Potassium 3.4 L (3.5-5.1) mmol/L BUN 2 L (9-20) mg/dL Creatinine 0.56 L (0.66-1.25) mg/dL Glucose 131 H (74-99) mg/dL ALT 52 H (4-49) U/L Alkaline Phosphatase 135 H (38-126) U/L Total Protein 5.2 L (6.3-8.2) g/dL Albumin 2.8 L (3.5-5.0) g/dL Assessment and Plan Assessment: I discussed the care with Alonso Euceda NP and reviewed the findings and plan as documented in the note above. I did not staff this patient on this date.
[2020-07-05] MEDS: LACTATED RINGERS 1,000 ML IV SCH ×2 (18:07→23:11)
[2020-07-05] MEDS: MELATONIN 3 MG TABLET PO SCH (20:53)
[2020-07-06] MEDS: HYDROmorphone 1 MG/ML 1 ML SYRINGE IVP PRN ×6 (02:04→22:19)
[2020-07-06] MEDS: LACTATED RINGERS 1,000 ML IV SCH ×2 (05:59→13:46)
[2020-07-06] MEDS: THIAMINE 100 MG TAB PO SCH ×2 (06:31→18:24)
[2020-07-06] MEDS: HYDROcodone/APAP 10-325MG 1 EACH TAB PO PRN ×3 (08:33→19:59)
[2020-07-06] MEDS: polyethylene glycoL 3350 17 GM POWD.PACK PO SCH (08:34)
[2020-07-06] MEDS: ENOXAPARIN 40 MG/0.4 ML SYRINGE SQ SCH (08:34)
[2020-07-06] MEDS: PANTOPRAZOLE 40 MG/10 ML VIAL IVP SCH (08:34)
--- NOTE | 2020-07-06 09:42 | P.PN ---
<Alonso Euceda - Last Filed: 07/06/20 09:31> Subjective Progress Note Date: 07/06/20 Principal diagnosis: Pancreatitis Hospital course: Patient is a 29-year-old male with a past medical history of EtOH use/abuse reportedly drinking a fifth of vodka daily and previous IVDA with heroin last time reported using being >5 years ago. He presented to the hospital on 06/29/20 with a chief complaint of severe abdominal pain and was seen and fully evaluated in the emergency department with diagnosis of pancreatitis with amylase of 407 and lipase of [address] abdomen and pelvis with contrast confirming with findings reporting to be compatible with acute pancreatitis and hepatomegaly. Patient admitted under our services for continued close medical management. Patient has been receiving fluid hydration and pain management. Diffuse abdominal pain remains. A repeat CT abdomen and pelvis with IV contrast was completed on 07/03/20 revealing persistent features of moderately severe pancreatitis with diffuse edema persisting around the pancreas with surrounding fluid and inflammatory changes compatible with acute pancreatitis, no shayne pseudocyst formation seen at this time, and no evidence for abscess or necrosis at this time. Physical exam: 07/06/20: Pertinent seen and evaluated at bedside this morning. He reports feeling slightly better. States pain today is mostly in his LUQ and remains very tender to palpation. He is to remain NPO at this time until further evaluated by GI. IV fluids to continue infusing at 175 mL/hour. Patient updated regarding the plan of care and denied having any further questions at this time. He continues to deny having any chest pain, palpitations, shortness of breath or experiencing any episodes of vomiting. General: non toxic, no distress, appears at stated age Derm: warm, dry Head: atraumatic, normocephalic, symmetric Eyes: EOMI, no lid lag, anicteric sclera Mouth: no lip lesion, mucus membranes moist Cardiovascular: S1S2 reg, no murmur, gallop or rub. Positive posterior tibial pulses bilaterally, no edema, cap refill less than 2 seconds. Lungs: Respirations even, regular, and unlabored. Lungs CTA bilaterally, no rhonchi, no rales, no wheezing or no accessory muscle use Abdominal: Abdomen soft nondistended, patient reports continued diffuse tenderness with mild palpation throughout all quadrants of abdomen, worse in left upper, epigastric region and right upper quadrants. Ext: no gross muscle atrophy, no edema, no contractures Neuro: CN II-XI grossly intact, no focal neuro deficits Psych: Alert, oriented, appropriate affect Plan of care: Acute pancreatitis -Lipase is improving and is down to 1221 from previous 6122. -Repeat CT abdomen and pelvis with IV contrast on 07/03/20 revealed persistent features of moderately severe pancreatitis with diffuse edema persisting around the pancreas with surrounding fluid and inflammatory changes compatible with acute pancreatitis, no shayne pseudocyst formation seen at this time, and no evidence for abscess or necrosis at this time. -The patient continues to receive Dilaud and [place] around the clock. -NPO pending further evaluation by GI -Leukocytosis has resolved from previous 14.3 upon admission down to 10.5 this morning. We will repeat CBC, BMP, liver profile, and lipase with a.m. labs. Transaminitis, improving -Elevated liver enzymes with AST of 41, ALT of 52, and alkaline phosphatase of 135. -We will continue to monitor closely with repeat a.m. labs. Hypokalemia -Potassium 3.4 and replaced. -We will continue to monitor closely with repeat a.m. labs. EtOH abuse -CIWA protocol in place with symptom triggered medication management with Ativan -Patient received 7 mg of Ativan during first 24 hours here and has not received any doses after. -Patient to receive continued education regarding risks of continued alcohol use and abuse up to and including , encouragement of alcohol cessation, and information regarding outpatient treatment programs and assistance. CODE STATUS: Full code DVT prophylaxis: Lovenox Discussed with: Patient and RN Anticipated discharge date: Clinical course to determine, possibly over the next 1-[address]: Home A total of 45 minutes was spent on the care of this complex patient more than 50% of the time was spent in counseling and care coordination. Objective - Vital Signs Vital signs: Vital Signs Temp 98.0 F 07/06/20 08:45 Pulse 68 07/06/20 08:45 Resp 16 07/06/20 08:45 BP 138/99 07/06/20 08:45 Pulse Ox 98 07/06/20 08:45 Intake & Output 07/05/20 07/06/20 07/06/20 18:59 06:59 18:59 Intake Total 1400 Output Total 700 Balance 1400 -700 Weight 65.2 kg Intake: Intake, IV Titration 1400 Amount Sodium Chloride 0.9% 1, 1400 000 ml @ 175 mls/hr IV . Q5H43M RACHEL Rx#:[id number] Oral 0 Output: Urine 700 Other: Voiding Method Urinal Toilet Urinal - Labs CBC & Chem 7: 07/04/20 08:03 07/05/20 08:53 Labs: Abnormal Lab Results - Last 24 Hours (Table) 07/05/20 Range/Units 08:53 Potassium 3.4 L (3.5-5.1) mmol/L BUN 2 L (9-20) mg/dL Creatinine 0.56 L (0.66-1.25) mg/dL Glucose 131 H (74-99) mg/dL ALT 52 H (4-49) U/L Alkaline Phosphatase 135 H (38-126) U/L Total Protein 5.2 L (6.3-8.2) g/dL Albumin 2.8 L (3.5-5.0) g/dL <Asiya Ruggiero - Last Filed: 07/06/20 14:52> Objective - Vital Signs Vital signs: Vital Signs Temp 98.2 F 07/06/20 11:06 Pulse 74 07/06/20 11:06 Resp 16 07/06/20 11:06 BP 123/90 07/06/20 11:06 Pulse Ox 96 07/06/20 11:06 Intake & Output 07/05/20 07/06/20 07/06/20 18:59 06:59 18:59 Intake Total 1400 2300 Output Total 700 800 Balance 1400 -700 1500 Weight 65.2 kg Intake: Intake, IV Titration 1400 1800 Amount Lactated Ringers 1,000 ml 1800 @ 150 mls/hr IV .Q6H40M RACHEL Rx#:[id number] Sodium Chloride 0.9% 1, 1400 000 ml @ 175 mls/hr IV . Q5H43M RACHEL Rx#:[id number] Oral 0 500 Output: Urine 700 800 Other: Voiding Method Urinal Toilet Urinal # Voids 4 - Labs CBC & Chem 7: 07/04/20 08:03 07/05/20 08:53 Assessment and Plan Assessment: Patient seen and examined independently. Patient was also seen by Alonso Euceda NP and case was discussed. I am in agreement with subjective, physical exam, assessment and plan as written above and amended below. States that his abdominal pain is somewhat better but he started having more left upper quadrant pain yesterday. Wants to eat something and is feeling hungry. General: non toxic, no distress, appears at stated age Derm: warm, dry Head: atraumatic, normocephalic, symmetric Eyes: EOMI, no lid lag, anicteric sclera Mouth: no lip lesion, mucus membranes moist Cardiovascular: S1S2 reg, no murmur, positive posterior tibial pulse bilateral, Lungs: Decreased breath sounds bilateral, no rhonchi, no rales , no accessory muscle use Abdominal: soft, tender to palpation left and right upper quadrant, no guarding, no appreciable organomegaly Psych: Alert, oriented, appropriate affect
--- NOTE | 2020-07-06 12:18 | CONS ---
CONSULTATION DATE OF SERVICE: July 06, 2020 REQUESTING PHYSICIAN: Dr. Nolen REASON FOR CONSULTATION: Acute pancreatitis. HISTORY OF PRESENT ILLNESS: The patient is a 29-year-old white male with history of heavy alcohol abuse who has been drinking heavily for the last one month duration, but he has history of alcohol use for almost 14 years duration, admitted to the hospital with acute pancreatitis. He presented with severe epigastric pain associated with nausea, vomiting five days ago. His initial CAT scan was done on June 29 that showed findings in the pancreas consistent with acute pancreatitis as well as hepatic steatosis. The patient subsequently was doing better. He was given pain medications and started on clear liquids and diet was gradually advanced to a soft diet. His initial amylase was 407 and lipase was 6122. However, 2 days ago he started complaining of worsening abdominal pain and the lipase was still persistently elevated at 1221, and hence he had a repeat CT scan of the abdomen and pelvis done 2 days ago that once again showed severe inflammatory changes in the pancreas with diffuse edema with surrounding fluid compatible with acute pancreatitis. No evidence of necrosis or pseudocyst formation noted. The patient today is feeling somewhat better. He remains n.p.o. for now. He has history of heavy alcohol abuse, had 2 episodes of pancreatitis. The last first one was a year ago and the 2nd one was 5 months ago. PAST MEDICAL HISTORY: Significant for alcohol abuse. History of pancreatitis. MEDICATIONS: Medications at home none. ALLERGIES: No known drug allergies. SOCIAL HISTORY: Chronic smoker. Heavy alcohol use as mentioned above. FAMILY HISTORY: Family history unremarkable. REVIEW OF SYSTEMS: CARDIOPULMONARY: He denies any chest pain or shortness of breath. no dysuria or hematuria. MUSCULOSKELETAL unremarkable. SKIN unremarkable. Endocrine unremarkable. Psychiatric unremarkable. NEUROLOGY: Unremarkable. ENT/VISION: Unremarkable. CONSTITUTIONAL: No recent weight loss. No fever, chills, night sweats. PHYSICAL EXAMINATION: Blood pressure is 138/99, pulse rate 68, temperature 98. HEENT examination unremarkable. Conjunctivae pink. Sclerae anicteric. Oral cavity, no lesions. NECK no JVD. No lymph node enlargement. CHEST was clear auscultation. HEART: Regular rate and rhythm. ABDOMEN: Soft. There was tenderness in the epigastric area. Mild tenderness in the left upper quadrant area. Rest of the abdomen was benign. Bowel sounds are positive. No organomegaly. EXTREMITIES: No pedal edema. NEURO: He is alert and oriented x3. No focal deficits. LABS: Lipase at the time of admission hospital 6122. Yesterday it was 1221. AST and ALT are slightly elevated at 41 and 52 respectively. Alkaline phosphatase is 135 and T- bilirubin is normal. Basic metabolic panel is within normal limits. WBC 10.4, hemoglobin 12.7, platelets 331. IMPRESSION: 1. This is a patient admitted to hospital with acute onset of severe epigastric pain associated with nausea, vomiting and noted to have elevated lipase all consistent with chronic relapsing pancreatitis secondary to alcohol abuse. CT scan done at the time of admission to the hospital as well as repeat 2 days ago showed severe diffuse edema of the pancreas with peripancreatic fluid collection, fluid consistent with acute pancreatitis. No evidence of pseudocyst formation or necrosis noted. The patient is clinically doing well and appears to be gradually improving. heavy alcohol abuse. RECOMMENDATIONS: 1. Start on clear liquids and gradually advance to full liquids by tomorrow. 2. Abstinence from alcohol. 3. Continue with aggressive IV hydration and pain medications as needed. 4. Repeat amylase and lipase tomorrow. 5. We will follow with you closely. Thank you for this consultation. MMODL / IJN: [id number] /
[2020-07-06] MEDS ORDERED: POTASSIUM CHLORIDE ER 20 MEQ TAB.ER PO STA (12:37)
[2020-07-06] MEDS: MELATONIN 3 MG TABLET PO SCH (22:19)
[2020-07-07] MEDS: HYDROmorphone 1 MG/ML 1 ML SYRINGE IVP PRN ×6 (02:01→22:24)
[2020-07-07] MEDS: LACTATED RINGERS 1,000 ML IV SCH ×3 (02:04→17:46)
[2020-07-07] MEDS: HYDROcodone/APAP 10-325MG 1 EACH TAB PO PRN ×3 (03:25→20:28)
[2020-07-07 08:57] LABS: HCT 36.2 % (39.6-50.0); HGB 12.2 g/dL (13.0-17.0); MCH 33.1 pg (27.0-32.0); MCHC 33.7 g/dL (32.0-37.0); MCV 98.1 fL (80.0-97.0); Mean Platelet Volume 9.5 fL (9.5-12.2); Platelet Count 581 X 10*3/uL (140-440); RBC 3.69 X 10*6/uL (4.40-5.60); RDW 13.2 % (11.5-14.5); WBC 7.14 X 10*3/uL (4.50-10.00)
[2020-07-07] MEDS: THIAMINE 100 MG TAB PO SCH ×2 (09:02→17:46)
[2020-07-07] MEDS: polyethylene glycoL 3350 17 GM POWD.PACK PO SCH (09:02)
[2020-07-07] MEDS: PANTOPRAZOLE 40 MG/10 ML VIAL IVP SCH (09:02)
[2020-07-07] MEDS: ENOXAPARIN 40 MG/0.4 ML SYRINGE SQ SCH (09:02)
[2020-07-07 09:16] LABS: Amylase 66 U/L (30-110); Lipase 611 U/L (23-300)
[2020-07-07] MEDS: ONDANSETRON 4 MG/2 ML VIAL IVP PRN ×2 (09:27→22:23)
[2020-07-07 12:04] LABS: African American GFR (CKD) 169.7 (60.0-200.0); Blood Urea Nitrogen <5.0 mg/dL (9.0-27.0); Calcium 9.4 mg/dL (8.7-10.3); Carbon Dioxide 31.1 mmol/L (21.6-31.8); Chloride 103 mmol/L (96-109); Glucose 96 mg/dL (70-110); Non-African American GFR(CKD) 146.4 (60.0-200.0); Potassium 4.6 mmol/L (3.5-5.5); Sodium 142 mmol/L (135-145)
--- NOTE | 2020-07-07 15:24 | P.PN ---
Subjective Progress Note Date: 07/07/20 Principal diagnosis: Pancreatitis Seen and examined sitting up in bed. He states his pain is improved some. He denies any nausea or vomiting. He has been on a full liquid diet. IV fluids infusing at 150 Ml/hr. Repeat lipase with improvement, today 611. Objective - Vital Signs Vital signs: Vital Signs Temp 98 F 07/07/20 05:00 Pulse 81 07/07/20 05:00 Resp 18 07/07/20 05:00 BP 144/97 07/07/20 05:00 Pulse Ox 97 07/07/20 05:00 Intake & Output 07/06/20 07/07/20 07/07/20 18:59 06:59 18:59 Intake Total 2300 100 Output Total 1475 Balance 825 100 Weight 62.732 kg Intake: Intake, IV Titration 1800 Amount Lactated Ringers 1,000 ml 1800 @ 150 mls/hr IV .Q6H40M RACHEL Rx#:[id number] Oral 500 100 Output: Urine 1475 Other: Voiding Method Toilet Toilet Urinal Urinal # Voids 3 1 - Exam General appearance: The patient is alert, oriented, appears in no acute distress. HET: Head is normocephalic and atraumatic. Conjunctiva pink. Sclera anicteric. Neck: Supple without lymphadenopathy. Abdomen: Soft, right upper quadrant and epigastric tenderness, nondistended with bowel sounds. No guarding or rigidity. Extremities: Normal skin color and turgor. No pedal edema Skin: No rashes, no jaundice Neurological: No focal deficits. Alert and oriented 3. - Labs CBC & Chem 7: 07/07/20 06:17 07/07/20 06:17 Labs: Abnormal Lab Results - Last 24 Hours (Table) 07/07/20 07/07/20 Range/Units 06:17 06:17 RBC 3.69 L (4.40-5.60) X 10*6/uL Hgb 12.2 L (13.0-17.0) g/dL Hct 36.2 L (39.6-50.0) % MCV 98.1 H (80.0-97.0) fL MCH 33.1 H (27.0-32.0) pg Plt Count 581 H (140-440) X 10*3/uL Lipase 611 H (23-300) U/L Assessment and Plan (1) Pancreatitis Narrative/Plan: The patient is a 29-year-old male with a history of heavy alcohol abuse has been drinking heavily for the last 1 month's duration but has a history of alcohol use from is 14 years duration. He was admitted to the hospital with acute pancreatitis. He has a history of pancreatitis in the past, he states his first episode was approximately one year ago and his last 5 months ago. He presented with severe epigastric pain associated with nausea and vomiting 5 days ago. His initial CAT scan was done on June 29 showed findings in the pancreas consistent with acute pancreatitis as well as hepatic steatosis. The patient was doing subsequently better, however 2-3 days ago he started comp laining of worsening abdominal pain with a persistently elevated lipase at 1221. Repeat computed tomography scan of the abdomen was performed showing again inflammatory changes in the pancreas with diffuse edema with surrounding fluid compatible with acute pancreatitis, there is no evidence of necrosis or pseudocyst formation noted. Current Visit: Yes Status: Acute Code(s): K85.90 - ACUTE PANCREATITIS WITHOUT NECROSIS OR INFECTION, UNSP SNOMED Code(s): 84058547 (2) Alcohol abuse Current Visit: Yes Status: Acute Code(s): F10.10 - ALCOHOL ABUSE, UNCOMPLICATED SNOMED Code(s): 80933254 Plan: 1. Symptomatic and supportive care 2. Continue aggressive IV hydration 3. May advance to low-fat diet for dinner 4. Continue with alcohol abstinence 5. Repeat CMP, lipase in the morning Thank you for this consultation, we will continue to follow Dr. Otero I agree with the dictator's note, documented as a scribe by Vicki Lundy.
[2020-07-07] MEDS: MELATONIN 3 MG TABLET PO SCH (20:27)
[2020-07-08] MEDS: LACTATED RINGERS 1,000 ML IV SCH ×4 (00:37→08:24)
[2020-07-08] MEDS: HYDROmorphone 1 MG/ML 1 ML SYRINGE IVP PRN (03:03)
[2020-07-08] MEDS: HYDROcodone/APAP 10-325MG 1 EACH TAB PO PRN (04:57)
[2020-07-08] MEDS: THIAMINE 100 MG TAB PO SCH (08:20)
[2020-07-08] MEDS: PANTOPRAZOLE 40 MG/10 ML VIAL IVP SCH (08:24)
[2020-07-08] MEDS: polyethylene glycoL 3350 17 GM POWD.PACK PO SCH (08:24)
[2020-07-08] MEDS: ENOXAPARIN 40 MG/0.4 ML SYRINGE SQ SCH (08:24)
[2020-07-08 10:43] LABS: African American GFR (CKD) 157.5 (60.0-200.0); Albumin 3.9 g/dL (3.80-4.90); Albumin/Globulin Ratio 1.95 (1.60-3.17); Anion Gap 7.8 mmol/L (4.00-12.00); BUN/Creat Ratio 8.33 Ratio (12.00-20.00); Calcium 9.4 mg/dL (8.7-10.3); Carbon Dioxide 31.2 mmol/L (21.6-31.8); Non-African American GFR(CKD) 135.9 (60.0-200.0); Total Bilirubin 0.4 mg/dL (0.2-1.2); Total Protein 5.9 g/dL (6.2-8.2)
[2020-07-08 11:53] VITALS: BP 117/77; PULSE 81; RESP 17; TEMP 98.4
--- NOTE | 2020-07-08 21:48 | P.PN ---
Progress Note - Text Progress Note Date: 07/07/20 Presenting complaint: Abdominal pain Hospital course: Patient is a 29-year-old male with a past medical history of EtOH use/abuse reportedly drinking a fifth of vodka daily and previous IVDA with heroin last time reported using being >5 years ago. He presented to the hospital on 06/29/20 with a chief complaint of severe abdominal pain and was seen and fully evaluated in the emergency department with diagnosis of pancreatitis with amylase of 407 and lipase of [address] abdomen and pelvis with contrast confirming with findings reporting to be compatible with acute pancreatitis and hepatomegaly. Patient has been receiving fluid hydration and pain management. Diffuse abdominal pain remains. A repeat CT abdomen and pelvis with IV contrast was completed on 07/03/20 revealing persistent features of moderately severe pancreatitis with diffuse edema persisting around the pancreas with surrounding fluid and inflammatory changes compatible with acute pancreatitis, no shayne pseudocyst formation seen at this time, and no evidence for abscess or necrosis at this time. Today-patient started on clear liquids. Abdominal pain is a bit better. Being followed by GI. No nausea vomiting. No fever. Review of systems: Was done for constitutional, cardiovascular, GI, pulmonary. relevant finding as above Current medications reviewed in today's electronic records On examination: VITAL SIGNS: 98.1, and, 122/75, 97% room air GENERAL APPEARANCE: BMI 98.4, reclining in bed, not in distress. HEENT: Normal external appearance of nose and ear. Oral cavity normal EYES: Pupils equal. Conjunctiva normal. NECK: JVD not raised. Mass not palpable. RESPIRATORY: Respiratory effort normal. Lungs clear to auscultation. CARDIOVASCULAR: First and second sounds normal. No edema. ABDOMEN: Soft. Epigastric tenderness. No guarding rigidity Liver and spleen not palpable. No mass palpable. PSYCHIATRY: Alert and oriented x3. Mood and affect normal. INVESTIGATIONS, reviewed in the clinical context: July 07: WBC 7.14 hemoglobin 12.2 platelets 581 potassium 4.6 creatinine 0.5 amylase 66 lipase 611 Admission labs: Amylase 407 lipase 6122 [place] 1.5 Coronavirus [PCR] not detected Computed tomography scan of the abdomen: Findings compatible with acute pancreatitis. Hepatomegaly Assessment and plan: Acute pancreatitis, secondary to alcoholism -Initially made nothing by mouth. Given IV fluids. Started IV fluids. Slowly improving -Alcoholic hepatitis Follow Hypokalemia Potassium replaced Chronic alcohol use disorder CIWA scale. Education Hypomagnesemia Replace magnesium Reactive leukocytosis secondary to pancreatitis, improving Follow WBC Care was discussed with the patient. Encouraged to ablate. Increase activity. Follow with GI
--- NOTE | 2020-07-08 21:53 | P.DS ---
Providers Date of admission: 06/29/20 07:42 Expected date of discharge: 07/08/20 Attending physician: Harry Wheeler Consults: 07/05/20 09:57 Consult Physician Routine Consulting Provider: Miryam Manzanares Consult Reason/Comments: Pancreatitis, not improving Do you want consulting provider notified?: Yes Primary care physician: Eduar Nolen MD Hospital Course: Presenting complaint: Abdominal pain Hospital course: Patient is a 29-year-old male with a past medical history of EtOH use/abuse reportedly drinking a fifth of vodka daily and previous IVDA with heroin last time reported using being >5 years ago. He presented to the hospital on 06/29/20 with a chief complaint of severe abdominal pain and was seen and fully evaluated in the emergency department with diagnosis of pancreatitis with amylase of 407 and lipase of [address] abdomen and pelvis with contrast confirming with findings reporting to be compatible with acute pancreatitis and hepatomegaly. Patient has been receiving fluid hydration and pain management. Diffuse abdominal pain remains. A repeat CT abdomen and pelvis with IV contrast was comp leted on 07/03/20 revealing persistent features of moderately severe pancreatitis with diffuse edema persisting around the pancreas with surrounding fluid and inflammatory changes compatible with acute pancreatitis, no shayne pseudocyst formation seen at this time, and no evidence for abscess or necrosis at this time. Today-tolerating a low-fat diet. Pain much improved. Has been ambulating. Cleared by GI. Had a lengthy talk with the patient about cessation of alcohol. And long-term complications. Discussion and discharge planning more than 35 minutes Consultation: Dr. Glenny Manzanares and partners from GI On examination: VITAL SIGNS: 98.4, 81, 17, 117/77, 98% room air GENERAL APPEARANCE: BMI 98.4, reclining in bed, not in distress. HEENT: Normal external appearance of nose and ear. Oral cavity normal EYES: Pupils equal. Conjunctiva normal. NECK: JVD not raised. Mass not palpable. RESPIRATORY: Respiratory effort normal. Lungs clear to auscultation. CARDIOVASCULAR: First and second sounds normal. No edema. ABDOMEN: Soft. No tenderness. No guarding rigidity Liver and spleen not palpable. No mass palpable. PSYCHIATRY: Alert and oriented x3. Mood and affect normal. INVESTIGATIONS, reviewed in the clinical context: July 08: Potassium 4 magnesium 2 July 07: WBC 7.14 hemoglobin 12.2 platelets 581 potassium 4.6 creatinine 0.5 amylase 66 lipase 611 Admission labs: Amylase 407 lipase 6122 [place]es[place] 1.5 Coronavirus [PCR] not detected Computed tomography scan of the abdomen: Findings compatible with acute pancreatitis. Hepatomegaly Assessment and plan: Acute pancreatitis, secondary to alcoholism. Clinically improved -Initially made nothing by mouth. Given IV fluids. Started IV fluids. Improved. Tolerating low-fat diet -Alcoholic hepatitis, with hepatomegaly Follow Hypokalemia Potassium replaced Chronic alcohol use disorder CIWA scale. Education. Add disulfuram for discharge Hypomagnesemia Replace magnesium Reactive leukocytosis secondary to pancreatitis, corrected Disposition: Home Diet: [place], low-fat Plan - Discharge Summary Discharge Rx Participant: No New Discharge Prescriptions: New Thiamine [Vitamin B-1] 100 mg PO BID-W/MEALS #60 tab Disulfiram 250 mg PO DIRECTED #30 tablet Famotidine [Pepcid] 20 mg PO BID #60 tablet Discharge Medication List Disulfiram 250 mg PO DIRECTED #30 tablet 07/08/20 [Rx] Famotidine [Pepcid] 20 mg PO BID #60 tablet 07/08/20 [Rx] Thiamine [Vitamin B-1] 100 mg PO BID-W/MEALS #60 tab 07/08/20 [Rx] Follow up Appointment(s)/Referral(s): Eduar Nolen MD [Primary Care Provider] - 07/15/20 9:45 am (with oscar) Prashanth Otero MD [STAFF PHYSICIAN] - 07/22/20 10:30 am Discharge Disposition: HOME SELF-CARE
--- NOTE | 2020-07-09 13:12 | P.PN ---
Subjective Progress Note Date: 07/08/20 Principal diagnosis: Pancreatitis She was seen and examined sitting up in bed. He states abdominal pain has improved significantly. He is tolerating his regular diet. He denies any nausea or vomiting. Objective - Vital Signs Vital signs: Vital Signs Temp 97.6 F 07/08/20 05:11 Pulse 83 07/08/20 05:11 Resp 16 07/08/20 05:11 BP 136/95 07/08/20 05:11 Pulse Ox 99 07/08/20 05:11 Intake & Output 07/07/20 07/08/20 07/08/20 18:59 06:59 18:59 Intake Total 700 Balance 700 Weight 63.2 kg Intake: Oral 700 Other: Voiding Method Toilet Toilet Toilet Urinal Urinal # Voids 0 # Bowel Movements 0 - Exam General appearance: The patient is alert, oriented, appears in no acute distress. HET: Head is normocephalic and atraumatic. Conjunctiva pink. Sclera anicteric. Neck: Supple without lymphadenopathy. Abdomen: Soft, mild right upper quadrant tenderness, nondistended with bowel sounds. No guarding or rigidity. Extremities: Normal skin color and turgor. No pedal edema Skin: No rashes, no jaundice Neurological: No focal deficits. Alert and oriented 3. - Labs CBC & Chem 7: 07/07/20 06:17 07/08/20 05:44 Labs: Abnormal Lab Results - Last 24 Hours (Table) 07/07/20 07/08/20 Range/Units 06:17 05:44 BUN <5.0 L 5.0 L (9.0-27.0) mg/dL Creatinine 0.5 L (0.6-1.5) mg/dL BUN/Creatinine Ratio 8.33 L (12.00-20.00) Ratio Total Protein 5.9 L (6.2-8.2) g/dL Lipase 98 H (14-60) U/L Assessment and Plan (1) Pancreatitis Narrative/Plan: The patient is a 29-year-old male with a history of heavy alcohol a buse has been drinking heavily for the last 1 month's duration but has a history of alcohol use from is 14 years duration. He was admitted to the hospital with acute pancreatitis. He has a history of pancreatitis in the past, he states his first episode was approximately one year ago and his last 5 months ago. He presented with severe epigastric pain associated with nausea and vomiting 5 days ago. His initial CAT scan was done on June 29 showed findings in the pancreas consistent with acute pancreatitis as well as hepatic steatosis. The patient was doing subsequently better, however 2-3 days ago he started complaining of worsening abdominal pain with a persistently elevated lipase at 1221. Repeat computed tomography scan of the abdomen was performed showing again inflammatory changes in the pancreas with diffuse edema with surrounding fluid compatible with acute pancreatitis, there is no evidence of necrosis or pseudocyst formation noted. Status: Acute Code(s): K85.90 - ACUTE PANCREATITIS WITHOUT NECROSIS OR INFECTION, UNSP SNOMED Code(s): 84319957 (2) Alcohol abuse Status: Acute Code(s): F10.10 - ALCOHOL ABUSE, UNCOMPLICATED SNOMED Code(s): 55590569 Plan: 1. Symptomatic and supportive care 2. Continue with low-fat diet 3. Continue with alcohol abstinence Thank you for this consultation, patient may be discharged home from a gastroenterology stamp once medically stable Dr. Otero I agree with the dictator's note, documented as a scribe by Vicki Lundy.
== END 2020-07-08 13:00 | disposition home or self-care (01) | DRG 439 ==
LOC: EC 05:23 → 3SCARD 07:42 → 5NMEDONC 07-06 17:13
PROVIDERS: ADMIT Hospitalist; ATTEND Hospitalist
DX: K85.20 Alcohol induced acute pancreatitis without necrosis or infection (principal); F10.239 Alcohol dependence with withdrawal, unspecified; K86.1 Other chronic pancreatitis; F17.200 Nicotine dependence, unspecified, uncomplicated; E83.42 Hypomagnesemia; K76.0 Fatty (change of) liver, not elsewhere classified; K70.10 Alcoholic hepatitis without ascites; E87.6 Hypokalemia; D72.828 Other elevated white blood cell count; Z20.822 Contact with and (suspected) exposure to COVID-19
CPT/HCPCS: 36415; 74177; 80048; 80053; 80320; 82150; 83690; 83735; 85025; 85027; 87635; 96361; 96374; 96376; 99285

== ENCOUNTER 2020-10-10 00:08 | Emergency (ER) | payer OTHER ==
[2020-10-10 00:16] VITALS: BP 132/85; PULSE 81; RESP 19; TEMP 97.5
[2020-10-10] MEDS ORDERED: IBUPROFEN 600 MG STARTER PACK 4 TAB BTL PO STA (00:24)
--- NOTE | 2020-10-10 00:27 | ED ---
Upper Extremity HPI - General Chief Complaint: Extremity Injury, Upper Stated Complaint: Right hand injury Time Seen by Provider: 10/10/20 00:19 Source: patient Mode of arrival: ambulatory - History of Present Illness Initial Comments: 29 year-old female patient presents for evaluation of right hand pain. Patient states he was drinking tonight. He fell out of bed and injured the hand. States he did hit his mouth and chipped a tooth. Denies hitting his head or losing consciousness. States he is having pain in his hand beneath the thumb. Denies numbness or tingling. Did not take anything for pain prior to arrival. Denies any other injuries or concerns. - Related Data Previous Rx's Medication Instructions Recorded Disulfiram 250 mg PO DIRECTED #30 tablet 07/08/20 Famotidine [Pepcid] 20 mg PO BID #60 tablet 07/08/20 Thiamine [Vitamin B-1] 100 mg PO BID-W/MEALS #60 tab 07/08/20 Ibuprofen [Motrin] 600 mg PO Q8HR PRN #30 tab 10/10/20 Allergies Allergy/AdvReac Type Severity Reaction Status Date / Time No Known Allergies Allergy Verified 10/10/20 00:16 Review of Systems ROS Statement: Those systems with pertinent positive or pertinent negative responses have been documented in the HPI. ROS Other: All systems not noted in ROS Statement are negative. Past Medical History Past Medical History: No Reported History Additional Past Medical History / Comment(s): drug abuse History of Any Multi-Drug Resistant Organisms: None Reported Past Surgical History: No Surgical Hx Reported Past Anesthesia/Blood Transfusion Reactions: No Reported Reaction Additional Past Anesthesia/Blood Transfusion Reaction / Comment(s): Patient has never received blood Past Psychological History: No Psychological Hx Reported Smoking Status: Current every day smoker Past Alcohol Use History: Daily, Heavy Past Drug Use History: Heroin - Past Family History Father History Unknown: Yes Family Medical History: No Reported History General Exam General appearance: alert, in no apparent distress, other (This is well- developed, well-nourished adult male patient in no acute distress. Vital signs upon presentation temperature 97.5F, pulse 81, respirations 19, blood pressure 132/85, pulse ox 99% on room air.) Head exam: Present: atraumatic, normocephalic, normal inspection ENT exam: Present: normal exam, normal oropharynx, mucous membranes moist, other (Chipped front tooth) Respiratory exam: Present: normal lung sounds bilaterally. Absent: respiratory distress, wheezes, rales, rhonchi, stridor Cardiovascular Exam: Present: regular rate, normal rhythm, normal heart sounds. Absent: systolic murmur, diastolic murmur, rubs, gallop, clicks GI/Abdominal exam: Present: soft, normal bowel sounds. Absent: distended, tenderness, guarding, rebound, rigid Extremities exam: Present: full ROM, tenderness (Over the palmar aspect of the right hand over the hyperthenar eminence), normal capillary refill, other (There is soft tissue swelling noted over the hyperthenar eminence on the right. Skin is otherwise pink, warm, dry. Cap refill less than 3 seconds. Radial pulses 2+.). Absent: normal inspection, pedal edema, joint swelling, calf tenderness Neurological exam: Present: alert, oriented X3, CN II-XII intact Psychiatric exam: Present: normal affect, normal mood Skin exam: Present: warm, dry, intact, normal color. Absent: rash Course Vital Signs 10/10/20 00:10 Temperature 97.5 F L Pulse Rate 81 Respiratory 19 Rate Blood Pressure 132/85 O2 Sat by Pulse 99 Oximetry Medical Decision Making - Medical Decision Making 29 year-old male patient presents to the emergency department came in for evaluation of right hand pain and swelling after a fall. Physical exam did reveal soft tissue swelling over the hyperthenar eminence. No anatomical snuff box tenderness. Xray shows no sign of fracture. Pedro wrap applied. Discharged with prescription for ibuprofen for pain control. He is educated regarding rest, ice, elevation. Instructed to follow up with his primary care physician for recheck in 1 week if his symptoms continue. Return parameters discussed in detail. He verbalizes understanding and agrees with this plan. My attending is Dr. Valdez. - Radiology Data Radiology results: report reviewed, image reviewed 3 views of the right hand are obtained. Report is reviewed in its entirety. Impression by Dr. Smalls shows negative right hand exam. No fracture. Disposition Clinical Impression: Sprain of right hand Disposition: HOME SELF-CARE Condition: Good Instructions (If sedation given, give patient instructions): Hand Sprain (ED) Additional Instructions: Use Pedro wrap for compression and support. Rest, ice, elevate the hand. Take Tylenol Motrin for pain control. Follow-up with the primary care physician for recheck in 1-2 days. Return for any new, worsening, or concerning symptoms. Prescriptions: Ibuprofen [Motrin] 600 mg PO Q8HR PRN #30 tab PRN Reason: Pain Is patient prescribed a controlled substance at d/c from ED?: No Referrals: Eduar Nolen MD [Primary Care Provider] - 1-2 days Time of Disposition: 00:42
--- NOTE | 2020-10-10 00:39 | XR ---
EXAMINATION TYPE: XR hand complete RT DATE OF EXAM: 10/10/2020 COMPARISON: NONE HISTORY: Fall. Pain and swelling TECHNIQUE: 3 views FINDINGS: Metacarpals are intact. I see no fracture nor dislocation. Joint spaces are normal. There a re no erosions. IMPRESSION: Negative right hand exam. No fracture.
== END 2020-10-10 01:01 | disposition home or self-care (01) ==
LOC: EC 00:08
DX: S63.91XA Sprain of unspecified part of right wrist and hand, initial encounter (principal); F17.200 Nicotine dependence, unspecified, uncomplicated; W06.XXXA Fall from bed, initial encounter
CPT/HCPCS: 99284

== ENCOUNTER 2023-05-12 17:56 | Observation (INO) | payer OTHER ==
--- NOTE | 2023-05-12 18:46 | ED ---
Nausea/Vomiting/Diarrhea HPI - General Source: patient, RN notes reviewed Mode of arrival: ambulatory Limitations: no limitations - History of Present Illness MD complaint: nausea, vomiting, abdominal pain <Malathi Curran - Last Filed: 05/12/23 18:44> - General Source: patient, RN notes reviewed, old records reviewed <Demario Pop - Last Filed: 05/12/23 22:13> - General Chief complaint: Nausea/Vomiting/Diarrhea Stated complaint: Alcohol Withdrawal, Abd Pain Time Seen by Provider: 05/12/23 18:44 - History of Present Illness Initial comments: This is a 32-year-old male who presents to the emergency department for abdominal pain, nausea, and vomiting. States that this feels like previous bouts of pancreatitis, and he is concerned that he may have this again. Reports chronic alcohol abuse as well, which he states typically triggers this. (Malathi Curran) Patient is a 32-year-old male who presents emergency department for pancreatitis. Has a history of alcohol abuse as well as pancreatitis. Presents for further evaluation at this time. Endorses epigastric abdominal pain with intractable nausea and vomiting. Last drink was last night at midnight. Has been throwing up since. Nonbilious nonbloody throw up. Denies any diarrhea. No other acute complaints. Presents for further evaluation. Concern for alcohol withdrawals. Patient originally evaluated as a quick note. I evaluated him when he is placed in a room. (Demario Pop) - Related Data Previous Rx's Medication Instructions Recorded Disulfiram 250 mg PO DIRECTED #30 tablet 07/08/20 Famotidine [Pepcid] 20 mg PO BID #60 tablet 07/08/20 Thiamine [Vitamin B-1] 100 mg PO BID-W/MEALS #60 tab 07/08/20 Ibuprofen [Motrin] 600 mg PO Q8HR PRN #30 tab 10/10/20 Allergies Allergy/AdvReac Type Severity Reaction Status Date / Time No Known Allergies Allergy Verified 05/12/23 18:41 Review of Systems ROS Other: All systems not noted in ROS Statement are negative. <Malathi Curran - Last Filed: 05/12/23 18:44> ROS Other: All systems not noted in ROS Statement are negative. <Demario Pop - Last Filed: 05/12/23 22:13> ROS Statement: Those systems with pertinent positive or pertinent negative responses have been documented in the HPI. Review of Systems: CONST: Denies fever EYES: Denies blurry vision ENT: Denies nasal congestion C/V: Denies Chest pain RESP: Denies shortness of breath GI: Endorses abdominal pain : Denies dysuria SKIN: Denies rash. MSK: Denies joint pain. NEURO: Denies headache (Demario Pop) Past Medical History Past Medical History: No Reported History Additional Past Medical History / Comment(s): drug abuse History of Any Multi-Drug Resistant Organisms: None Reported Past Surgical History: No Surgical Hx Reported Past Anesthesia/Blood Transfusion Reactions: No Reported Reaction Additional Past Anesthesia/Blood Transfusion Reaction / Comment(s): Patient has never received blood Past Psychological History: No Psychological Hx Reported Smoking Status: Current every day smoker Past Alcohol Use History: Daily, Heavy Past Drug Use History: Heroin - Past Family History Father History Unknown: Yes Family Medical History: No Reported History <Malathi Curran - Last Filed: 05/12/23 18:44> General Exam Limitations: no limitations <Malathi Curran - Last Filed: 05/12/23 18:44> <Demario Pop - Last Filed: 05/12/23 22:13> - General Exam Comments Initial Comments: Visual Physical Exam Vital signs reviewed General: Well-appearing, nontoxic, no acute distress. Head: Normocephalic, atraumatic Eyes: PERRLA, EOMI ENT: Airway patent Chest: Nonlabored breathing Skin: No visual rash, normal skin tone Neuro: Alert and oriented 3 Musculoskeletal: No gross abnormalities (Malathi Curran) General: Appears in alcohol withdrawals with tremors as well as tongue fasciculations. HEAD: Normal with no signs of head trauma. EYES: PERRLA, EOMI, conjunctiva normal, no discharge. ENT: Hearing grossly intact, normal oropharynx. RESPIRATORY: Clear breath sounds bilaterally. No wheezes, rales, or rhonchi. C/V: Regular rate and rhythm. S1 and S2 auscultated, no edema, peripheral pulses 2+ and intact throughout ABD: Abdomen is soft, nondistended. Tender palpation epigastric and periumbilical region. No guarding. No rebound tenderness. No peritoneal signs. EXT: Normal range of motion, no obvious deformity SKIN: No rashes or lesions observed on exposed skin. NEURO: Alert and oriented x 4. (Demario Pop) Course Vital Signs 05/12/23 05/12/23 05/12/23 18:39 20:35 21:17 Temperature 97.9 F Pulse Rate 71 94 96 Respiratory 16 18 18 Rate Blood Pressure 151/96 142/105 143/98 O2 Sat by Pulse 100 99 100 Oximetry Medical Decision Making <Malathi Curran - Last Filed: 05/12/23 18:44> - Lab Data Result diagrams: 05/12/23 19:57 05/12/23 19:57 - EKG Data -: EKG Interpreted by Me <Demario Pop - Last Filed: 05/12/23 22:13> - Medical Decision Making I performed the QuickNote portion of this chart. Signed Malathi Curran PA-C. (Malathi Curran) Was pt. sent in by a medical professional or institution (SHAMIKA Santos, [employer]OR, urgent care, hospital, or halfway...) When possible be specific @ -No Did you speak to anyone other than the patient for history (EMS, parent, family, police, friend...)? What history was obtained from this source @ -No Did you review nursing and triage notes (agree or disagree)? Why? @ -I reviewed and agree with nursing and triage notes Were old charts reviewed (outside hosp., previous admission, EMS record, old EKG, old radiological studies, urgent care reports/EKG's, halfway records)? Report findings @ -No old charts were reviewed Differential Diagnosis (chest pain, altered mental status, abdominal pain women, abdominal pain men, vaginal bleeding, weakness, fever, dyspnea, syncope, headache, dizziness, GI bleed, back pain, seizure, CVA, palpatations, mental health, musculoskeletal)? @ -Differential Abdominal Pain Men: Appendicitis, cholecystitis, diverticulosis, ischemic bowel, pancreatitis, hepatitis, UTI, gastroenteritis, AAA, incarcerated hernia, bowel obstruction, constipation, inflammatory bowel, hepatitis, peptic ulcer disease, splenic infarction, perforated viscus, testicular torsion, this is not meant to be an all-inclusive list EKG interpreted by me (3pts min.). @ -As above X-rays interpreted by me (1pt min.). @ -None done CT interpreted by me (1pt min.). @ -CT imaging reveals moderate pancreatitis. U/S interpreted by me (1pt. min.). @ -None done What testing was considered but not performed or refused? (CT, X-rays, U/S, labs)? Why? @ -None What meds were considered but not given or refused? Why? @ -None Did you discuss the management of the patient with other professionals (professionals i.e. , PA, [employer]OR, lab, RT, psych nurse, case management social worker, nuclear physics professor, teacher, asset protection officer, family caseworker)? Give summary @ -Discussed with Dr. Bennett who accepted the admission. Was smoking cessation discussed for >3mins.? @ -No Was critical care preformed (if so, how long)? @ -No Were there social determinants of health that impacted care today? How? (Homelessness, low income, unemployed, alcoholism, drug addiction, transportation, low edu. Level, literacy, decrease access to med. care, [facility], rehab)? @ -No Was there de-escalation of care discussed even if they declined (Discuss DNR or withdrawal of care, Hospice)? DNR status @ -No What co-morbidities impacted this encounter? (DM, HTN, Smoking, COPD, CAD, Cancer, CVA, ARF, Chemo, Hep., AIDS, mental health diagnosis, sleep apnea, morbid obesity)? @ -Alcohol abuse, pancreatitis Was patient admitted / discharged? Hospital course, mention meds given and route, prescriptions, significant lab abnormalities, going to OR and other pertinent info. @ -Based on the patient's presentation and physical exam, presents with alcohol withdrawals and suspected pancreatitis. Patient's workup started in triage as a quick note. Patient will be given doses of Ativan, morphine, Zofran, IV fluids. He was in agreement this plan. Vital signs are within acceptable limits. Patient's laboratory studies remarkable for mild leukocytosis of 11.2. Patient's lipase and amylase of breath elevated at [address] imaging revealed moderate pancreatitis. On reevaluation, patient is feeling improved. He will be admitted for alcohol jaws as well as treatment of his moderate pancreatitis. Patient was in agreement this plan. Undiagnosed new problem with uncertain prognosis? @ -No Drug Therapy requiring intensive monitoring for toxicity (Heparin, Nitro, Insulin, Cardizem)? @ -No Were any procedures done? @ -No Diagnosis/symptom? @ -Pancreatitis, alcohol withdrawals Acute, or Chronic, or Acute on Chronic? @ -Acute on chronic Uncomplicated (without systemic symptoms) or Complicated (systemic symptoms)? @ -Complicated Side effects of treatment? @ -No Exacerbation, Progression, or Severe Exacerbation? @ -No Poses a threat to life or bodily function? How? (Chest pain, [place], NH, pneumonia, PE, COPD, DKA, ARF, appy, cholecystitis, CVA, Diverticulitis, Homicidal, Suicidal, threat to staff... and all critical care pts) @ -Yes (Demario Pop) - Lab Data Lab Results 05/12/23 05/12/23 Range/Units 19:57 19:57 WBC 11.2 H (3.8-10.6) k/uL RBC 4.69 (4.30-5.90) m/uL Hgb 15.8 (13.0-17.5) gm/dL Hct 45.7 (39.0-53.0) % MCV 97.5 (80.0-100.0) fL MCH 33.7 (25.0-35.0) pg MCHC 34.6 (31.0-37.0) g/dL RDW 12.1 (11.5-15.5) % Plt Count 294 (150-450) k/uL MPV 7.1 Neutrophils % 88 % Lymphocytes % 6 % Monocytes % 4 % Eosinophils % 2 % Basophils % 0 % Neutrophils # 9.9 H (1.3-7.7) k/uL Lymphocytes # 0.6 L (1.0-4.8) k/uL Monocytes # 0.4 (0-1.0) k/uL Eosinophils # 0.2 (0-0.7) k/uL Basophils # 0.0 (0-0.2) k/uL Sodium 137 (137-145) mmol/L Potassium 4.2 (3.5-5.1) mmol/L Chloride 99 (98-107) mmol/L Carbon Dioxide 27 (22-30) mmol/L Anion Gap 11 mmol/L BUN 13 (9-20) mg/dL Creatinine 0.82 (0.66-1.25) mg/dL Est GFR (CKD-EPI)AfAm >90 (>60 ml/min/1.73 sqM) Est GFR (CKD-EPI)NonAf >90 (>60 ml/min/1.73 sqM) Glucose 113 H (74-99) mg/dL Calcium 9.6 (8.4-10.2) mg/dL Total Bilirubin 0.7 (0.2-1.3) mg/dL AST 42 (17-59) U/L ALT 23 (4-49) U/L Alkaline Phosphatase 82 (38-126) U/L Total Protein 8.4 H (6.3-8.2) g/dL Albumin 5.0 (3.5-5.0) g/dL Amylase 226 H (30-110) U/L Lipase 1745 H (23-300) U/L Serum Alcohol <10 mg/dL - EKG Data EKG Comments: 12-lead Electrocardiogram Interpretation Note EKG was reviewed and interpreted by myself. 12-lead ECG performed at 2027 is interpreted by me as revealing normal sinus rhythm at a rate of 73 beats per minute. [place] is normal. OK interval is 166 ms, QRS duration is 110 ms, QTc is 441 ms.. There were no ST or T wave abnormalities to suggest myocardial ischemia or injury. R wave progression across the precordium was satisfactory. By my interpretation this EKG is non-diagnostic for acute ischemia. (Demario Pop) Disposition <Malathi Curran - Last Filed: 05/12/23 18:44> Time of Disposition: 21:59 <Demario Pop - Last Filed: 05/12/23 22:13> Clinical Impression: Pancreatitis, Alcohol withdrawal Disposition: ADMITTED IP TO THIS HOSP Condition: Stable Referrals: Eduar Nolen MD [Primary Care Provider] - 1-2 days
[2023-05-12 20:08] LABS: Basophils % (A) 0 %; Eosinophils # (A) 0.2 k/uL (0-0.7); Eosinophils % (A) 2 %; HCT 45.7 % (39.0-53.0); HGB 15.8 gm/dL (13.0-17.5); Lymphocytes # (A) 0.6 k/uL (1.0-4.8); Lymphocytes % (A) 6 %; MCH 33.7 pg (25.0-35.0); MCHC 34.6 g/dL (31.0-37.0); MCV 97.5 fL (80.0-100.0); Mean Platelet Volume 7.1; Monocytes # (A) 0.4 k/uL (0-1.0); Monocytes % (A) 4 %; Neutrophils # (A) 9.9 k/uL (1.3-7.7); Neutrophils % (A) 88 %; Platelet Count 294 k/uL (150-450); RBC 4.69 m/uL (4.30-5.90); RDW 12.1 % (11.5-15.5); WBC 11.2 k/uL (3.8-10.6)
[2023-05-12] MEDS: LORazepam 2 MG/ML INJ IV STA ×2 (20:35→21:15)
[2023-05-12] MEDS: MORPHINE SULFATE 4 MG/ML SYRINGE IVP STA (20:35)
[2023-05-12] MEDS: ONDANSETRON 4 MG/2 ML VIAL IVP STA (20:35)
[2023-05-12] MEDS: SODIUM CHLORIDE 0.9% 1,000 ML IV STA ×2 (20:35→21:15)
[2023-05-12 20:53] LABS: ALT 23 U/L (4-49); AST 42 U/L (17-59); African American GFR (CKD) >90 (>60 ml/min/1.73 sqM); Alcohol <10 mg/dL; Alkaline Phosphatase 82 U/L (38-126); Amylase 226 U/L (30-110); Anion Gap 11 mmol/L; Blood Urea Nitrogen 13 mg/dL (9-20); Calcium 9.6 mg/dL (8.4-10.2); Carbon Dioxide 27 mmol/L (22-30); Chloride 99 mmol/L (98-107); Glucose 113 mg/dL (74-99); Lipase 1745 U/L (23-300); Non-African American GFR(CKD) >90 (>60 ml/min/1.73 sqM); Potassium 4.2 mmol/L (3.5-5.1); Sodium 137 mmol/L (137-145); Total Bilirubin 0.7 mg/dL (0.2-1.3); Total Protein 8.4 g/dL (6.3-8.2)
--- NOTE | 2023-05-12 21:37 | CT ---
EXAMINATION TYPE: CT abdomen pelvis w con DATE OF EXAM: 05/12/2023 HISTORY: Abd. pain since this morning. Technique: Departmental protocol. Automated Exposure Control for Dose Reduction was Utilized. CONTRAST: CT scan of the abdomen and pelvis is performed with oral and with IV Contrast, patient inje cted with 80 mL of Isovue 300. CT DLP: 662.8 mGycm. COMPARISON: 07/03/2020 FINDINGS: LUNG BASES: No acute process. LIVER/GB: No significant abnormality is appreciated. PANCREAS: There is fluid density circumferentially surrounding the pancreatic parenchyma of the tail and body, throughout the anterior pararenal space from the midline leftward to a position adjacent to the spleen and splenic flexure. The tail is especially indistinct and contains a 4 cm segment (axial page 23 of 102 which shows mild hypodensity relative to the surrounding pancreatic parenchyma. This is not well-seen on this portal venous phase CT, but the finding could reflect developing parenchymal necrosis; attention on follow-up. Splenic vein is patent. SPLEEN: No significant abnormality is seen. ADRENALS: No significant abnormality is seen. KIDNEYS: No acute process. BOWEL: No significant abnormality is seen. PERITONEAL CAVITY: No pneumoperitoneum or fluid. PELVIC VISCERA: Unremarkable. LYMPH NODES: No greater than 1cm abdominal or pelvic lymph nodes are appreciated. VASCULATURE: No acute process. OSSEOUS STRUCTURES: No aggressive lesion. IMPRESSION: Moderate-marked acute pancreatitis.
[2023-05-12] MEDS ORDERED: NALOXONE 0.4 MG/ML 1 ML VIAL IV PRN (22:13)
[2023-05-12] MEDS ORDERED: LORazepam 2 MG/ML INJ IV PRN (22:13)
[2023-05-12] MEDS: MORPHINE SULFATE 4 MG/ML SYRINGE IV PRN (23:16)
[2023-05-12] MEDS: THIAMINE 100 MG/ML 2 ML VIAL IM STA (23:22)
--- NOTE | 2023-05-13 00:44 | P.HPIM ---
History of Present Illness H&P Date: 05/12/23 Chief Complaint: Abdominal pain 32-year-old male with history of pancreatitis, alcohol abuse and dependence Patient coming in complaining of severe epigastric abdominal pain radiating straight to the back rated 10 out of 10 in severity sharp in nature worse with eating started overnight and got worse this morning for which she decided to come into the hospital. He also reports repeated nausea and vomiting denies any bleeding denies any diarrhea denies any GI bleeding. Denies any cough shortness of breath chest pain fevers or chills. He does admit to heavy alcohol consumption his last drink was last night at midnight he started as he ran out and was having a lot of pain and could not tolerate any thing to eat or drink Patient admits to heavy drinking denies any tobacco smoking or illicit drugs review of systems Pertinent positives as noted in HPI. All other systems were reviewed and are negative on exam Constitutional: No acute distress, Eyes: Anicteric sclerae, moist conjunctiva, Pupils equal round reactive to light ENMT: NC/AT Oropharynx clear, no erythema, or exudates Neck: Supple, no masses, or JVD No carotid bruits No thyromegaly Lungs: Clear to auscultation Clear to percussion Normal respiratory effort, no accessory muscle use Cardiovascular: Heart regular in rate and rhythm, No murmurs, gallops, or rubs No peripheral edema Abdominal: Soft Tenderness to palpation of the epigastric region, no guarding, rebound or rigidity Abdomen moving with respiration Normoactive bowel sounds No hepatomegaly, No splenomegaly No palpable mass No abdominal wall hernia noted Extremities: No digital cyanosis No clubbing Pedal pulses intact and symmetrical Radial pulses intact and symmetrical No calf tenderness Psychiatric: Alert and oriented to person, place and time Appropriate affect fair judgement Neuro Muscles Strength 5/5 in all 4 extremities Sensation to light touch grossly present throughout Cranial nerves II-XII grossly intact Lymphatics: no palpable cervical or supraclavicular lymph nodes Past Medical History Past Medical History: No Reported History Additional Past Medical History / Comment(s): drug abuse History of Any Multi-Drug Resistant Organisms: None Reported Past Surgical History: No Surgical Hx Reported Past Anesthesia/Blood Transfusion Reactions: No Reported Reaction Additional Past Anesthesia/Blood Transfusion Reaction / Comment(s): Patient has never received blood Past Psychological History: No Psychological Hx Reported Smoking Status: Current every day smoker Past Alcohol Use History: Daily, Heavy Additional Past Alcohol Use History / Comment(s): Patient states he drinks over a fifth of vodka everyday Past Drug Use History: Heroin - Past Family History Father History Unknown: Yes Family Medical History: No Reported History Medications and Allergies Home Medications Medication Instructions Recorded Confirmed Type Ibuprofen [Motrin] 600 mg PO Q8HR PRN #30 tab 10/10/20 05/12/23 Rx Ascorbic Acid [Vitamin C] 1,000 mg PO DAILY 05/12/23 05/12/23 History Cholecalciferol [Vitamin D3 (25 25 mcg PO DAILY 05/12/23 05/12/23 History Mcg = 1000 Iu)] Allergies Allergy/AdvReac Type Severity Reaction Status Date / Time No Known Allergies Allergy Verified 05/12/23 22:59 Physical Exam Vitals: Vital Signs Temp Pulse Pulse Resp BP BP Pulse Ox 05/13/23 00:27 98.4 F 111 H 16 133/90 98 05/12/23 23:18 99 18 133/99 99 05/12/23 21:17 96 18 143/98 100 05/12/23 20:35 94 18 142/105 99 05/12/23 18:39 97.9 F 71 16 151/96 100 Intake and Output 05/12/23 05/12/23 05/13/23 14:59 22:59 06:59 Other: Weight 65.771 kg 65.771 kg Results CBC & Chem 7: 05/12/23 19:57 05/12/23 19:57 Labs: Abnormal Lab Results - Last 24 Hours (Table) 05/12/23 05/12/23 Range/Units 19:57 19:57 WBC 11.2 H (3.8-10.6) k/uL Neutrophils # 9.9 H (1.3-7.7) k/uL Lymphocytes # 0.6 L (1.0-4.8) k/uL Glucose 113 H (74-99) mg/dL Total Protein 8.4 H (6.3-8.2) g/dL Amylase 226 H (30-110) U/L Lipase 1745 H (23-300) U/L Assessment and Plan Assessment: 32-year-old male with history of pancreatitis, alcohol abuse and dependence coming in with acute epigastric abdominal pain associated with repeated nausea and vomiting I discussed the case with ED doctor accepted the admission for acute pancreatitis and monitoring for alcohol withdrawal with anticipated length of stay more than 2 midnights Acute pancreatitis secondary to alcohol abuse Alcohol abuse and dependence pending alcohol withdrawal Alcohol level less than 10 Lipase level 1745 Amylase 226 Renal function unremarkable sodium 137 potassium 4.2 BUN 13 creatinine 0.8 White count 11.2 afebrile Hemoglobin 15.8 N.p.o. strict IV fluid hydration status post 2 L normal saline continue with lactated Ringer 150 cc/h Protonix IV push daily Dilaudid 0.5 mg every 2 hours as needed for pain Zofran 4 mg as needed for nausea vomiting every [address] abdomen pelvis confirmed moderate acute pancreatitis Full code DVT prophylaxis Lovenox subcu 40 mg daily
[2023-05-13] MEDS: LACTATED RINGERS 1,000 ML IV SCH (00:49)
[2023-05-13] MEDS: LORazepam 2 MG/ML INJ IV PRN ×2 (00:50→03:28)
[2023-05-13] MEDS: HYDROmorphone 0.5 MG/0.5 ML SYRINGE IVP PRN (02:20)
[2023-05-13] MEDS: ONDANSETRON 4 MG/2 ML VIAL IVP PRN (03:28)
[2023-05-13 06:45] LABS: Basophils % (A) 0 %; Eosinophils # (A) 0.1 k/uL (0-0.7); Eosinophils % (A) 1 %; HCT 41.7 % (39.0-53.0); HGB 14.2 gm/dL (13.0-17.5); Lymphocytes % (A) 11 %; MCH 33.5 pg (25.0-35.0); MCHC 34.1 g/dL (31.0-37.0); MCV 98.2 fL (80.0-100.0); Mean Platelet Volume 8.6; Monocytes # (A) 0.8 k/uL (0-1.0); Monocytes % (A) 9 %; Neutrophils # (A) 7.1 k/uL (1.3-7.7); Neutrophils % (A) 79 %; Platelet Count 288 k/uL (150-450); RBC 4.25 m/uL (4.30-5.90); RDW 12.2 % (11.5-15.5)
[2023-05-13 06:52] LABS: ALT 16 U/L (4-49); AST 31 U/L (17-59); African American GFR (CKD) >90 (>60 ml/min/1.73 sqM); Albumin 4.1 g/dL (3.5-5.0); Albumin/Globulin Ratio 1.5; Alkaline Phosphatase 67 U/L (38-126); Anion Gap 8 mmol/L; Blood Urea Nitrogen 7 mg/dL (9-20); Calcium 8.6 mg/dL (8.4-10.2); Carbon Dioxide 24 mmol/L (22-30); Chloride 102 mmol/L (98-107); Globulin 2.7 g/dL; Glucose 91 mg/dL (74-99); Non-African American GFR(CKD) >90 (>60 ml/min/1.73 sqM); Potassium 3.9 mmol/L (3.5-5.1); Sodium 134 mmol/L (137-145); Total Bilirubin 0.8 mg/dL (0.2-1.3); Total Protein 6.8 g/dL (6.3-8.2)
[2023-05-13] MEDS: ENOXAPARIN 40 MG/0.4 ML SYRINGE SQ SCH (07:59)
[2023-05-13] MEDS: THIAMINE 100 MG TAB PO SCH (07:59)
[2023-05-13] MEDS: PANTOPRAZOLE 40 MG/10 ML VIAL IV SCH (07:59)
--- NOTE | 2023-05-13 16:03 | P.PN ---
Subjective Progress Note Date: 05/13/23 No new complaints. Still having some abd pain and nausea/vomiting. Gen: In NAD, non-toxic HEENT: normocephalic, atraumatic, hearing acuity is intant, mucous membranes moist CVS: perfusing all extremities well, no pitting edema, Respiratory: symmetric chest expansion, no accessory muscle use, GI: soft, NTTP, ND, : no suprapubic tenderness, no CVA tenderness MSK/Derm: no rashes, cyanosis Neuro: CN II-XII intact, no motor weakness, Psych: cooperative, euthymic mood, judgment and insight is intact Hospital Course: 32-year-old male with history of pancreatitis, alcohol abuse and dependence pr esented for severe epigastric abdominal pain radiating straight to the back. Renal function unremarkable sodium 137 potassium 4.2 BUN 13 creatinine 0.8. Alcohol level less than 10. Lipase level 1745. Amylase 226. White count 11.[address] abdomen pelvis confirmed moderate acute pancreatitis. Acute pancreatitis secondary to alcohol abuse Alcohol abuse and dependence pending alcohol withdrawal -N.p.o. strict -IV fluid hydration status post 2 L normal saline continue with lactated Ringer 150 cc/h -Protonix IV push daily -Dilaudid 0.5 mg every 2 hours as needed for pain -Zofran 4 mg as needed for nausea vomiting every 8 hours Full code DVT prophylaxis Lovenox subcu 40 mg daily Objective - Vital Signs Vital signs: Vital Signs Temp 98.2 F 05/13/23 13:16 Pulse 84 05/13/23 13:16 Resp 18 05/13/23 13:16 BP 131/85 05/13/23 13:16 Pulse Ox 98 05/13/23 13:16 FiO2 Intake & Output 05/12/23 05/13/23 05/13/23 18:59 06:59 18:59 Intake Total 840 Balance 840 Weight 65.771 kg 65.771 kg Intake: Oral 840 Other: Voiding Method Toilet - Labs CBC & Chem 7: 05/13/23 06:04 05/13/23 06:04 Labs: Abnormal Lab Results - Last 24 Hours (Table) 05/12/23 05/12/23 05/13/23 Range/Units 19:57 19:57 06:04 WBC 11.2 H (3.8-10.6) k/uL RBC 4.25 L (4.30-5.90) m/uL Neutrophils # 9.9 H (1.3-7.7) k/uL Lymphocytes # 0.6 L (1.0-4.8) k/uL Sodium (137-145) mmol/L BUN (9-20) mg/dL Creatinine (0.66-1.25) mg/dL Glucose 113 H (74-99) mg/dL Total Protein 8.4 H (6.3-8.2) g/dL Amylase 226 H (30-110) U/L Lipase 1745 H (23-300) U/L 05/13/23 Range/Units 06:04 WBC (3.8-10.6) k/uL RBC (4.30-5.90) m/uL Neutrophils # (1.3-7.7) k/uL Lymphocytes # (1.0-4.8) k/uL Sodium 134 L (137-145) mmol/L BUN 7 L (9-20) mg/dL Creatinine 0.63 L (0.66-1.25) mg/dL Glucose (74-99) mg/dL Total Protein (6.3-8.2) g/dL Amylase (30-110) U/L Lipase (23-300) U/L
[2023-05-14 08:53] VITALS: BP 125/85; PULSE 80; RESP 16; TEMP 98
--- NOTE | 2023-05-14 13:08 | P.DS ---
Providers Date of admission: 05/12/23 22:14 Expected date of discharge: 05/14/23 Attending physician: Hellen Bennett MD Primary care physician: Stated None Hospital Course: Acute pancreatitis secondary to alcohol abuse Alcohol abuse and dependence pending alcohol withdrawal Gen: In NAD, non-toxic HEENT: normocephalic, atraumatic, hearing acuity is intant, mucous membranes moist CVS: perfusing all extremities well, no pitting edema, Respiratory: symmetric chest expansion, no accessory muscle use, GI: soft, NTTP, ND, : no suprapubic tenderness, no CVA tenderness MSK/Derm: no rashes, cyanosis Neuro: CN II-XII intact, no motor weakness, Psych: cooperative, euthymic mood, judgment and insight is intact Hospital Course: 32-year-old male with history of pancreatitis, alcohol abuse and dependence presented for severe epigastric abdominal pain radiating straight to the back. Renal function unremarkable sodium 137 potassium 4.2 BUN 13 creatinine 0.8. Alcohol level less than 10. Lipase level 1745. Amylase 226. White count 11.[address] abdomen pelvis confirmed moderate acute pancreatitis. Pt treated conservatively with IVF and nausea/pain control. He was also treated for REX with ativan PRN. Pt improved to tolerating PO foods by day of discharge and was sent home with resources to AA, and instructions to f/u with PCP. I spent 31 minutes coordinating this discharge on 05/14 Patient Condition at Discharge: Good Plan - Discharge Summary Discharge Rx Participant: No New Discharge Prescriptions: New Thiamine [Vitamin B-1] 100 mg PO DAILY #14 tab Continue Cholecalciferol [Vitamin D3 (25 Mcg = 1000 Iu)] 25 mcg PO DAILY Ascorbic Acid [Vitamin C] 1,000 mg PO DAILY Discontinued Ibuprofen [Motrin] 600 mg PO Q8HR PRN #30 tab PRN Reason: Pain Discharge Medication List Ascorbic Acid [Vitamin C] 1,000 mg PO DAILY 05/12/23 [History] Cholecalciferol [Vitamin D3 (25 Mcg = 1000 Iu)] 25 mcg PO DAILY 05/12/23 [History] Thiamine [Vitamin B-1] 100 mg PO DAILY #14 tab 05/14/23 [Rx] Follow up Appointment(s)/Referral(s): Eduar Nolen MD [REFERRING] - 1-2 days Discharge/Stand Alone Forms: AA Meetings [address] - [facility], AA Meetings [facility], Community Resources, Outpatient Counseling, In Substance Abuse Facilities Discharge Disposition: HOME SELF-CARE
== END 2023-05-14 11:24 | disposition home or self-care (01) ==
LOC: EC 17:56 → 5NMEDONC 22:14
PROVIDERS: ADMIT Internal Medicine; ATTEND Internal Medicine
DX: K85.20 Alcohol induced acute pancreatitis without necrosis or infection (principal); F10.239 Alcohol dependence with withdrawal, unspecified; Y90.0 Blood alcohol level of less than 20 mg/100 ml; F17.200 Nicotine dependence, unspecified, uncomplicated
CPT/HCPCS: 96376 ×4; 96361 ×4; 96372 ×3; 96375 ×2; 96374; 99285; 36415; 93005; 80053 ×2; 82150; 83690; 85025 ×2; 74177; G0378 ×3; G0480; J2060 ×2; J2270; J3411; J2405 ×2; J1650 ×2; C9113 ×2; J1170 ×2; Q9967; 80320